=== PATIENT | female | born 1950 | race Caucasian/White ===

== ENCOUNTER 2016-12-12 11:51 | Outpatient (CLI) | payer MEDICARE, OTHER ==
[2012-10-07 14:58] VITALS: BP 110/44
== END 2016-12-12 11:52 ==
LOC: CARD 11:51
PROVIDERS: ATTEND Internal Medicine Cardiovascular Disease
DX: R06.00 Dyspnea, unspecified (principal); R01.1 Cardiac murmur, unspecified; E11.9 Type 2 diabetes mellitus without complications
CPT/HCPCS: 93005; G0463

== ENCOUNTER 2016-12-12 13:13 | Outpatient (CLI) | payer MEDICARE, OTHER ==
[2012-10-07 14:58] VITALS: BP 110/44
--- NOTE | 2016-12-12 15:45 | Diagnostic Imaging Report ---
SHRUTI VALDEZ [facility] [address] [facility].[address] [address] Report Submission Date: December 12, 2016 3:04:06 PM CDT Patient Study Name: LESVIA WILBURN Date: December 12, 2016 1:27:13 PM CDT Modality Type: CR Gender: F Description: CHEST : 52 Institution: [facility] Physician: SHRUTI VALDEZ Chest PA and lateral views Clinical history: Dyspnea for few days Normal heart shadow. Atherosclerotic thoracic aorta. No acute infiltrates or pleural effusion. Suspicious of 1 cm vague density of the left upper lobe could be the 2nd coastal cartilage junction , however plain films are not available for comparison. CT scan of the chest without IV contrast would be advisable for further evaluation . electric stimulant in the thoracic spine . Impression: Vague 1 cm density in the left upper lung , may require CT scan of the chest. No active pulmonary pathology or pleural effusion Electronically signed on December 12, 2016 3:04:06 PM CDT by: Preet DEGROOT
== END 2016-12-12 13:14 ==
LOC: RAD 13:13
PROVIDERS: ATTEND Internal Medicine Cardiovascular Disease
DX: R06.02 Shortness of breath (principal)
CPT/HCPCS: 36415; 71020; 83880

== ENCOUNTER 2017-01-16 13:35 | Outpatient (CLI) | payer MEDICARE, OTHER ==
[2012-10-07 14:58] VITALS: BP 110/44
== END 2017-01-16 13:37 ==
LOC: CARD 13:35
PROVIDERS: ATTEND Internal Medicine Cardiovascular Disease
DX: I50.9 Heart failure, unspecified (principal); E11.9 Type 2 diabetes mellitus without complications
CPT/HCPCS: G0463

== ENCOUNTER 2017-03-02 12:49 | Outpatient (CLI) | payer MEDICARE, OTHER ==
[2012-10-07 14:58] VITALS: BP 110/44
--- NOTE | 2017-03-02 15:13 | Diagnostic Imaging Report ---
ABIMBOLA MC (COSMETIC ACCOUNT COORDINATOR) - OP [facility] [address] [address] Report Submission Date: Mar 02, 2017 1:33:42 PM CDT Patient Study Name: LESVIA WILBURN Date: Mar 02, 2017 1:02:54 PM CDT Modality Type: US Gender: F Description: UNILAT LTD STDY EXT VEINS : 52 Institution: [facility] Physician: ABIMBOLA MC (COSMETIC ACCOUNT COORDINATOR) - OP Examination: Ultrasound vein History: Calf discomfort Findings: Sonographic evaluation of the right lower extremity venous system from the groin to the popliteal fossa inclusive. Normal compressibility. No luminal filling defect. Normal waveforms and response to augmentation. No popliteal region fluid collection. Impression: No evidence for deep venous thrombosis. Electronically signed on Mar 02, 2017 1:33:42 PM CDT by: Paul DEGROOT
--- NOTE | 2017-03-02 15:14 | Diagnostic Imaging Report ---
ABIMBOLA MC (BREAD OVEN OPERATOR) - OP [facility] [address] [address] Report Submission Date: Mar 02, 2017 2:26:05 PM CDT Patient Study Name: LESVIA WILBURN Date: Mar 02, 2017 1:15:52 PM CDT Modality Type: CR Gender: F Description: LOWER EXTREMITY : 51 Institution: [facility] Physician: ABIMBOLA MC (BREAD OVEN OPERATOR) - OP Examination: Plain film knee History: Knee discomfort Findings: 3 views of the knee demonstrates diffuse osteopenia. Extensive fixation surgical changes/hardware involving the proximal tibia. Tibial spine degenerative spurring. Joint space narrowing. No displaced fracture line. No joint effusion. Impression: Osteopenia, degenerative change,s and extensive proximal tibia fixation hardware. No evidence for acute fracture line. Electronically signed on Mar 02, 2017 2:26:05 PM CDT by: Paul DEGROOT
== END 2017-03-02 12:50 ==
LOC: RAD 12:49
PROVIDERS: ATTEND Nurse Practitioner Family
DX: M79.661 Pain in right lower leg (principal); M25.561 Pain in right knee
CPT/HCPCS: 73562; 93971

== ENCOUNTER 2017-05-12 13:12 | Emergency (ER) | payer MEDICARE, OTHER ==
[2017-05-12] MEDS ORDERED: KETOROLAC TROMETHAMINE 60 MG/2 ML VIAL IM ONE (13:39)
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
[2017-05-12] MEDS ORDERED: KETOROLAC TROMETHAMINE 30 MG/1ML VIAL ONE (13:41)
[2017-05-12 14:47] VITALS: BP 148/76
--- NOTE | 2017-05-12 18:56 | Diagnostic Imaging Report ---
RUBY MONTGOMERY [facility] [address] [facility].[address] [address] Report Submission Date: May 12, 2017 2:21:22 PM CDT Patient Study Name: LESVIA WILBURN Date: May 12, 2017 2:04:37 PM CDT Modality Type: CR Gender: F Description: CHEST : 52 Institution: [facility] Physician: RUBY MONTGOMERY Chest and left ribs CLINICAL HISTORY: Rib and chest pain Technique: PA chest radiograph and three views of the left ribs FINDINGS: The lung ayers are hyperinflated but clear. No pneumothorax or pneumothorax is seen. There is aortic arch calcification. An epidural spinal catheter is present in the thoracic spine. The ribs are osteopenic. No displaced rib fracture is identified. IMPRESSION: Hyperinflation lungs Aortic atherosclerosis No acute infiltrate Osteopenia of the ribs with no definite fracture seen. Consider bone scan if pain persists Electronically signed on May 12, 2017 2:21:22 PM CDT by: Randy DEGROOT
== END 2017-05-12 14:46 | disposition home or self-care (01) ==
LOC: ED 13:12
DX: S20.212A Contusion of left front wall of thorax, initial encounter (principal); W19.XXXA Unspecified fall, initial encounter; Y93.9 Activity, unspecified; Y99.9 Unspecified external cause status
CPT/HCPCS: 71101; J1885; 96372; 99283

== ENCOUNTER 2017-10-19 14:30 | Outpatient (CLI) | payer MEDICARE, OTHER | END 2017-10-19 14:44 | LOC: POD 14:30 | PROVIDERS: ATTEND Podiatrist | DX: B35.1 Tinea unguium (principal); M79.674 Pain in right toe(s); M79.675 Pain in left toe(s); E11.42 Type 2 diabetes mellitus with diabetic polyneuropathy | CPT/HCPCS: 11721; G0463 ==

== ENCOUNTER 2018-02-01 14:15 | Outpatient (CLI) | payer MEDICARE, OTHER | END 2018-02-01 14:16 | LOC: POD 14:15 | PROVIDERS: ATTEND Podiatrist | DX: B35.1 Tinea unguium (principal); M79.674 Pain in right toe(s); M79.675 Pain in left toe(s) | CPT/HCPCS: 11721; G0463 ==

== ENCOUNTER 2018-04-16 17:01 | Inpatient (IN) | payer MEDICARE, OTHER ==
[2018-04-16] MEDS ORDERED: FUROSEMIDE 20 MG TABLET PO PRN (18:12)
[2018-04-16] MEDS ORDERED: POTASSIUM CHLORIDE 20 MEQ TABLET.ER PO PRN (18:12)
[2018-04-16] MEDS ORDERED: INSULIN GLARGINE,HUM.REC.ANLOG 100 UNIT/ML PEN.INJCTR SQ ONE (19:11)
[2018-04-16] MEDS ORDERED: INSULIN DETEMIR 100 UNIT/ML 3ML PEN.INJCTR SQ SCH (21:00)
[2018-04-16] MEDS: oxyCODONE/ACETAMINOPHEN 5/325 TABLET PO PRN (21:15)
[2018-04-16] MEDS: SENNOSIDES/DOCUSATE SODIUM 1 EACH TABLET PO SCH (21:15)
[2018-04-16] MEDS: CELECOXIB 100 MG CAPSULE PO SCH (21:16)
[2018-04-16 23:22] VITALS: BMI 44.4
[2018-04-17] MEDS: oxyCODONE/ACETAMINOPHEN 5/325 TABLET PO PRN ×4 (01:00→20:39)
[2018-04-17] MEDS: PANTOPRAZOLE SODIUM 40 MG TABLET PO SCH (06:09)
[2018-04-17] MEDS: CELECOXIB 100 MG CAPSULE PO SCH ×2 (08:22→20:36)
[2018-04-17] MEDS: CITALOPRAM HYDROBROMIDE 20 MG TABLET PO SCH (08:22)
[2018-04-17] MEDS: SENNOSIDES/DOCUSATE SODIUM 1 EACH TABLET PO SCH ×2 (08:22→20:36)
--- NOTE | 2018-04-17 10:49 | History and Physical Report ---
History of Present Illnes - History of Present Illness Reason for Visit: gait disturbance History of Present Illness: Patient is a 67-year-old white female with a history of congestive heart failure diabetes mellitus type II insulin-dependent, chronic anxiety generalized osteoarthritis, encourage. On April 13 patient found in the kitchen and sustained a medial condyle her fracture. Patient was subsequently seen over at [facility] by orthopedic. It was felt that no surgical intervention was needed and was recommended that the patient be placed in a knee immobilizer with potential weight-bearing while the fracture heals. During her hospital stay patient did experience some urinary retention and had a Shultz catheter place. Patient has had problems with urinary retention previously. Patient other chronic medical problems remain stable. [facility]. - Past Medical History Cardiac: CHF (EF 60%, moderate diastoic dysfuntion) Gastrointestinal: GERD Musculoskeletal: Osteoarthritis (generalized, knee) Endocrine: Diabetes (type 2) - Past Surgical History Past Surgical History: Appendectomy, Cholecystectomy, Hysterectomy, Tonsillectomy, Other (reconstructive right ankle surgery) - Past Family History Mother Family History: DM, (73yo) Father Family History: (74yo), Other (COPD) Brother 1 Family History: CAD, DM Sister 1 Family History: DM - Past Social History Smoke: # pack years (100), Quit Occupation: retired Alcohol: None Drugs: None Lives: With Family Domestic Violence: Negative - Health Maintenance Health Maintenance: denies: Influenza Vaccine, Pneumococcal Vaccine Influenza Vaccine: No Pneumonia Vaccine: No Resuscitation Status: Resusciation Status Resuscitation Status Full Code - Unable to Obtain History Unable to Obtain: No Review of Systems - Review of Systems Constitutional: Weakness. negative: Fever, Chills Eyes: negative: pain, vision change ENT: negative: Ear Pain, Ear Discharge, Nose Pain, Nose Discharge, Nose Congestion, Mouth Swelling, Throat Swelling Respiratory: Shortness of Breath (baseline). negative: Cough, Hemoptysis, Pleuritic Pain, Wheezing Cardiovascular: negative: Chest Pain, Palpitations, Orthopnea, Edema, Light Headedness Gastrointestinal: Constipation (no BM for the last several days you know if of the lady 121 at about today is not only wanted 119 okay she had had about). negative: Nausea, Vomiting, Abdominal Pain, Diarrhea Genitourinary: Retention. negative: Dysuria, Frequency, Incontinence Musculoskeletal: Back Pain, Leg Pain. negative: Neck Pain, Shoulder Pain Skin: negative: Rash Neurological: Weakness, Confusion (with medications). negative: Numbness, Inco ordination, Change in Speech - Medications/Allergies Allergies/Adverse Reactions: Allergies Allergy/AdvReac Type Severity Reaction Status Date / Time levofloxacin [From Levaquin] Allergy Intermediate Rash Verified 04/17/18 00:24 quinine [Quinine] Allergy Intermediate Rash Verified 04/17/18 00:24 Home Medications: Home Medications Acetaminophen [Tylenol] 650 mg PO Q4 PRN 04/16/18 Aspirin [Aspirin EC] 325 mg PO BID 04/16/18 Insulin Glargine,Hum.rec.anlog [Basaglar Kwikpen U-100] 30 unit SQ 8HS 04/16/18 Ondansetron HCl Rapdis [Zofran Odt] 4 mg PO Q6H PRN 04/16/18 Sennosides/Docusate Sodium [Senna-Docusate Sodium Tablet] 1 each PO BID PRN 04/16/18 oxyCODONE HCL/ACETAMINOPHEN [Percocet 5-325 mg Tablet] 1 - 2 each PO Q4 PRN 04/16/18 Celecoxib [Celebrex] 200 mg PO DAILY 04/17/18 Citalopram Hydrobromide [Celexa] 20 mg PO QD 04/17/18 Furosemide [Lasix] 20 mg PO DAILY PRN 04/17/18 Omeprazole 40 mg PO 717 04/17/18 Potassium Chloride [Klor-Con 10] 10 meq PO DAILY PRN 04/17/18 Pregabalin [Lyrica] 25 mg PO BID 04/17/18 Zolpidem Tartrate 10 mg PO HS PRN 04/17/18 Current Inpatient Medications: Current Inpatient Medications Acetaminophen (Tylenol) 650 mg PO Q4H PRN PRN Reason: Fever >101 Celecoxib (Celebrex) 100 mg PO BID [facility] Last Admin: 04/17/18 08:22 Dose: 100 mg Citalopram Hydrobromide (Celexa) 20 mg PO DAILY [facility] Last Admin: 04/17/18 08:22 Dose: 20 mg Furosemide (Lasix) 20 mg PO DAILY PRN PRN Reason: Swelling Miscellaneous (Chem Sticks) 1 each CHEMQID [facility] Last Admin: 04/17/18 08:20 Dose: 1 each Oxycodone/Acetaminophen (Percocet 5-325 Mg Tablet) 2 each PO Q4 PRN PRN Reason: Severe Pain Last Admin: 04/17/18 06:31 Dose: 2 each Pantoprazole Sodium (Protonix) 40 mg PO 0700 [facility] Last Admin: 04/17/18 06:09 Dose: 40 mg Potassium Chloride (Klor-Con M20) 20 meq PO DAILY PRN PRN Reason: when given lasix Senna/Docusate Sodium (Senna Plus Tablet) 1 each PO BID [facility] Last Admin: 04/17/18 08:22 Dose: 1 each Exam - Exam Vital Signs: Vital Signs (72 hours) 04/16/18 04/16/18 19:28 21:00 Temperature 97.7 F 97.6 F Pulse Rate [ 60 77 Pulse ox] Respiratory 20 20 Rate Blood Pressure 126/42 153/60 [Right Arm] O2 Sat by Pulse 99 98 Oximetry General: Alert, Oriented to Person, Oriented to Place, Oriented to Time, Mild distress HEENT: Atraumatic, PERRLA, EOMI, Mouth Mucous membr. moist/St[place], Nose Mucous membr. moist/Storden, Dentition Normal, Hearing Grossly Normal Neck: Normal Range of Motion. No: Stridor, Rigidity, Lymphadenopathy Carotids: WNL Thyroid: WNL Lungs: Clear to auscultation, Normal air movement, Speaks full Sentences. No: Wheezes, Rales, Chest Wall Tenderness Cardiovascular: Murmur, Irregularly Irregular Murmur: Systolic Murmur Murmur Location: Left Sternal Boarder Heart Murmur Grade: III Peripheral Edema: intact and normal Peripheral Pulses: normal Abdomen: Normal bowel sounds, Soft, No tenderness, No hepatospenomegaly Integumentary: Normal, [place], Warm, Dry Extremities: No clubbing, No cyanosis, No edema Neurological: Normal gait, Normal speech, Strength Equal Bilat, Normal tone, Sensation intact, Cranial nerves 3-12 NL, Reflexes 2+ Psych/Mental Status: Mental status NL, Mood NL, Appropriate Affect, Intact Judgment Assessment/Plan - Assessment/Plan (1) Closed fracture of right knee region Status: Acute Current Visit: Yes Assessment: Will continue with a straight knee immobilizer in the patient is up. Patient will be toe touch weight-bearing. Will start physical and occupational therapy. Follow-up an orthopedic as ordered. (2) CHF (congestive heart failure) Status: Chronic Current Visit: Yes Qualifiers: Heart failure type: systolic Heart failure chronicity: chronic Qualified Code(s): I50.22 - Chronic systolic (congestive) heart failure Assessment: I will continue patient home medications. (3) Diabetes mellitus type 2 Status: Chronic Current Visit: No Assessment: Patient will be continued on home insulin and diabetic medications. Will follow blood sugars and adjust medications as needed. Will monitor for hypoglycemic episodes. (4) Urinary retention with incomplete bladder emptying Status: Acute Current Visit: Yes Assessment: I will be Shultz catheter in the right now. Will start doing bladder training with into the patient is getting the Shultz catheter out early next week. (5) Constipation Status: Acute Current Visit: Yes Qualifiers: Constipation type: slow transit constipation Qualified Code(s): K59.01 - Slow transit constipation Assessment: Patient will be continued on current medications. Will get patient to milk of magnesia is symptoms did not improve. Lai anderson called the patient to have diarrhea. VTE Assessment - RISK FACTOR SCORE VTE RISK FACTOR SCORES: AGE OVER 60 YEARS, ANTICIPATED BED CONFINEMENT OR IMMOBILIZATION > 24 HOURS - RISK VTE MODERATE RISK: SCORE OF 2 (RISK PROXIMAL DVT 2-4%) PROPHYAXIS NEEDED (ASA 325 BID)
[2018-04-17] MEDS ORDERED: MAGNESIUM HYDROXIDE 400 MG/5 ML 30ML UDC PO ONE (14:09)
[2018-04-17] MEDS ORDERED: diphenhydrAMINE HCL 25 MG TABLET PO ONE (14:25)
[2018-04-17] MEDS: diphenhydrAMINE HCL 25 MG TABLET PO PRN ×2 (14:51→20:39)
[2018-04-17] MEDS: LIDOCAINE 5% ADH..PATCH TP SCH (15:24)
[2018-04-17] MEDS: Non-Formulary 1 EACH PO SCH (20:37)
[2018-04-17] MEDS ORDERED: Non-Formulary 1 EACH IV SCH (21:00)
[2018-04-17] MEDS: ZOLPIDEM TARTRATE 5 MG TABLET PO PRN (23:50)
[2018-04-18] MEDS: PANTOPRAZOLE SODIUM 40 MG TABLET PO SCH (06:07)
[2018-04-18] MEDS: LIDOCAINE 5% ADH..PATCH TP SCH (09:45)
[2018-04-18] MEDS: CELECOXIB 100 MG CAPSULE PO SCH ×2 (09:45→20:37)
[2018-04-18] MEDS: SENNOSIDES/DOCUSATE SODIUM 1 EACH TABLET PO SCH ×2 (09:45→20:35)
[2018-04-18] MEDS: CITALOPRAM HYDROBROMIDE 20 MG TABLET PO SCH (09:45)
[2018-04-18] MEDS: Non-Formulary 1 EACH PO SCH ×2 (09:46→20:36)
[2018-04-18] MEDS: INSULIN GLARGINE,HUM.REC.ANLOG 100 UNIT/ML PEN.INJCTR SQ SCH ×2 (09:49→20:40)
[2018-04-18] MEDS: oxyCODONE/ACETAMINOPHEN 5/325 TABLET PO PRN ×2 (10:00→19:02)
[2018-04-18] MEDS: diphenhydrAMINE HCL 25 MG TABLET PO PRN (19:03)
[2018-04-18] MEDS ORDERED: fentaNYL CITRATE/PF 100 MCG/ 2ML AMP IM ONE (21:22)
[2018-04-19] MEDS: diphenhydrAMINE HCL 25 MG TABLET PO PRN ×2 (02:54→15:26)
[2018-04-19] MEDS: oxyCODONE/ACETAMINOPHEN 5/325 TABLET PO PRN ×4 (02:54→19:57)
[2018-04-19] MEDS: PANTOPRAZOLE SODIUM 40 MG TABLET PO SCH (06:09)
[2018-04-19] MEDS: INSULIN GLARGINE,HUM.REC.ANLOG 100 UNIT/ML PEN.INJCTR SQ SCH ×2 (09:17→20:43)
[2018-04-19] MEDS: CITALOPRAM HYDROBROMIDE 20 MG TABLET PO SCH (09:19)
[2018-04-19] MEDS: SENNOSIDES/DOCUSATE SODIUM 1 EACH TABLET PO SCH ×2 (09:20→20:47)
[2018-04-19] MEDS: Non-Formulary 1 EACH PO SCH ×2 (09:20→20:48)
[2018-04-19] MEDS: CELECOXIB 100 MG CAPSULE PO SCH ×2 (09:21→20:46)
[2018-04-19] MEDS: LIDOCAINE 5% ADH..PATCH TP SCH (10:30)
[2018-04-19] MEDS: ZOLPIDEM TARTRATE 5 MG TABLET PO PRN (23:39)
[2018-04-20] MEDS: PANTOPRAZOLE SODIUM 40 MG TABLET PO SCH (06:20)
[2018-04-20] MEDS: LIDOCAINE 5% ADH..PATCH TP SCH (08:58)
[2018-04-20] MEDS: SENNOSIDES/DOCUSATE SODIUM 1 EACH TABLET PO SCH ×2 (08:58→20:28)
[2018-04-20] MEDS: CELECOXIB 100 MG CAPSULE PO SCH ×2 (08:58→20:28)
[2018-04-20] MEDS: Non-Formulary 1 EACH PO SCH ×2 (08:58→20:28)
[2018-04-20] MEDS: CITALOPRAM HYDROBROMIDE 20 MG TABLET PO SCH (08:58)
[2018-04-20] MEDS: INSULIN GLARGINE,HUM.REC.ANLOG 100 UNIT/ML PEN.INJCTR SQ SCH ×2 (09:25→20:43)
[2018-04-20] MEDS: oxyCODONE/ACETAMINOPHEN 5/325 TABLET PO PRN ×2 (12:18→18:52)
[2018-04-20] MEDS: diphenhydrAMINE HCL 25 MG TABLET PO PRN ×2 (12:24→18:52)
[2018-04-20] MEDS: ZOLPIDEM TARTRATE 5 MG TABLET PO PRN (21:57)
[2018-04-21] MEDS: PANTOPRAZOLE SODIUM 40 MG TABLET PO SCH (06:08)
[2018-04-21] MEDS: CITALOPRAM HYDROBROMIDE 20 MG TABLET PO SCH (08:35)
[2018-04-21] MEDS: Non-Formulary 1 EACH PO SCH ×2 (08:35→20:29)
[2018-04-21] MEDS: SENNOSIDES/DOCUSATE SODIUM 1 EACH TABLET PO SCH ×2 (08:35→20:29)
[2018-04-21] MEDS: LIDOCAINE 5% ADH..PATCH TP SCH (08:35)
[2018-04-21] MEDS: CELECOXIB 100 MG CAPSULE PO SCH ×2 (08:37→20:29)
[2018-04-21] MEDS: diphenhydrAMINE HCL 25 MG TABLET PO PRN ×3 (08:45→19:32)
[2018-04-21] MEDS: oxyCODONE/ACETAMINOPHEN 5/325 TABLET PO PRN ×3 (08:45→19:32)
[2018-04-21] MEDS: INSULIN GLARGINE,HUM.REC.ANLOG 100 UNIT/ML PEN.INJCTR SQ SCH ×2 (09:47→20:32)
[2018-04-21] MEDS: PREGABALIN 50 MG CAPSULE PO SCH (20:29)
[2018-04-21] MEDS: ZOLPIDEM TARTRATE 5 MG TABLET PO PRN (23:23)
[2018-04-22] MEDS: oxyCODONE/ACETAMINOPHEN 5/325 TABLET PO PRN ×3 (05:59→22:58)
[2018-04-22] MEDS: PANTOPRAZOLE SODIUM 40 MG TABLET PO SCH (06:00)
[2018-04-22] MEDS: diphenhydrAMINE HCL 25 MG TABLET PO PRN ×3 (06:00→22:58)
[2018-04-22 06:42] LABS: eGFR (Non-African) > 60
[2018-04-22] MEDS: Non-Formulary 1 EACH PO SCH ×2 (09:07→20:13)
[2018-04-22] MEDS: LIDOCAINE 5% ADH..PATCH TP SCH (09:07)
[2018-04-22] MEDS: CITALOPRAM HYDROBROMIDE 20 MG TABLET PO SCH (09:07)
[2018-04-22] MEDS: SENNOSIDES/DOCUSATE SODIUM 1 EACH TABLET PO SCH ×2 (09:07→20:13)
[2018-04-22] MEDS: CELECOXIB 100 MG CAPSULE PO SCH ×2 (09:08→20:20)
[2018-04-22] MEDS: INSULIN GLARGINE,HUM.REC.ANLOG 100 UNIT/ML PEN.INJCTR SQ SCH ×2 (09:21→20:24)
[2018-04-22] MEDS: PREGABALIN 50 MG CAPSULE PO SCH (20:20)
[2018-04-22 20:31] LABS: BASO % 0.8 % (0.0-1.5); EOS % 5.5 % (0.0-6.8); LYMPH ABS # 2.48 thou/uL (0.60-4.00); MCH. 29.2 pg (28.0-34.0); MCV 89.4 fL (80.0-100.0); MONOCYTE ABS # 0.47 thou/uL (0.00-0.90); PLATELET COUNT 312 thou/uL (130-400)
[2018-04-22] MEDS: ZOLPIDEM TARTRATE 5 MG TABLET PO PRN (22:57)
[2018-04-23] MEDS: PANTOPRAZOLE SODIUM 40 MG TABLET PO SCH (06:04)
[2018-04-23] MEDS: oxyCODONE/ACETAMINOPHEN 5/325 TABLET PO PRN ×3 (07:37→21:33)
[2018-04-23] MEDS: diphenhydrAMINE HCL 25 MG TABLET PO PRN ×3 (07:37→21:34)
[2018-04-23] MEDS: CITALOPRAM HYDROBROMIDE 20 MG TABLET PO SCH (08:26)
[2018-04-23] MEDS: LIDOCAINE 5% ADH..PATCH TP SCH (08:26)
[2018-04-23] MEDS: SENNOSIDES/DOCUSATE SODIUM 1 EACH TABLET PO SCH ×2 (08:26→21:19)
[2018-04-23] MEDS: CELECOXIB 100 MG CAPSULE PO SCH ×2 (08:26→21:21)
[2018-04-23] MEDS: Non-Formulary 1 EACH PO SCH ×2 (08:27→21:37)
[2018-04-23] MEDS: INSULIN GLARGINE,HUM.REC.ANLOG 100 UNIT/ML PEN.INJCTR SQ SCH ×3 (08:33→21:35)
[2018-04-23] MEDS: PREGABALIN 50 MG CAPSULE PO SCH (21:19)
[2018-04-23] MEDS: ZOLPIDEM TARTRATE 5 MG TABLET PO PRN (22:55)
[2018-04-24] MEDS: PANTOPRAZOLE SODIUM 40 MG TABLET PO SCH (06:28)
[2018-04-24] MEDS: oxyCODONE/ACETAMINOPHEN 5/325 TABLET PO PRN ×2 (08:09→20:45)
[2018-04-24] MEDS: CELECOXIB 100 MG CAPSULE PO SCH ×2 (08:10→20:50)
[2018-04-24] MEDS: SENNOSIDES/DOCUSATE SODIUM 1 EACH TABLET PO SCH ×2 (08:10→20:45)
[2018-04-24] MEDS: CITALOPRAM HYDROBROMIDE 20 MG TABLET PO SCH (08:11)
[2018-04-24] MEDS: LIDOCAINE 5% ADH..PATCH TP SCH (08:11)
[2018-04-24] MEDS: Non-Formulary 1 EACH PO SCH (08:12)
[2018-04-24] MEDS: INSULIN GLARGINE,HUM.REC.ANLOG 100 UNIT/ML PEN.INJCTR SQ SCH ×2 (08:12→20:46)
[2018-04-24] MEDS: POLYETHYLENE GLYCOL 3350 17 GM POWD.PACK PO SCH (17:47)
[2018-04-24] MEDS: ASPIRIN 325 MG TABLET PO SCH (20:44)
[2018-04-24] MEDS: diphenhydrAMINE HCL 25 MG TABLET PO PRN (20:45)
[2018-04-24] MEDS: PREGABALIN 50 MG CAPSULE PO SCH ×2 (20:49→20:50)
[2018-04-24] MEDS: ZOLPIDEM TARTRATE 5 MG TABLET PO PRN (22:35)
[2018-04-25] MEDS: PANTOPRAZOLE SODIUM 40 MG TABLET PO SCH (06:02)
[2018-04-25] MEDS: SENNOSIDES/DOCUSATE SODIUM 1 EACH TABLET PO SCH ×2 (09:14→20:26)
[2018-04-25] MEDS: CITALOPRAM HYDROBROMIDE 20 MG TABLET PO SCH (09:14)
[2018-04-25] MEDS: LIDOCAINE 5% ADH..PATCH TP SCH (09:15)
[2018-04-25] MEDS: ASPIRIN 325 MG TABLET PO SCH ×2 (09:15→20:26)
[2018-04-25] MEDS: CELECOXIB 100 MG CAPSULE PO SCH ×2 (09:15→20:26)
[2018-04-25] MEDS: INSULIN GLARGINE,HUM.REC.ANLOG 100 UNIT/ML PEN.INJCTR SQ SCH ×2 (09:18→20:25)
[2018-04-25] MEDS: POLYETHYLENE GLYCOL 3350 17 GM POWD.PACK PO SCH (10:33)
[2018-04-25] MEDS: ACETAMINOPHEN 325 MG TABLET PO PRN ×2 (12:58→17:14)
[2018-04-25] MEDS ORDERED: HYDROCORTISONE 2.5% RECTAL 28.35 GM TUBE RC PRN (16:27)
[2018-04-25] MEDS: diphenhydrAMINE HCL 25 MG TABLET PO PRN (19:33)
[2018-04-25] MEDS: oxyCODONE/ACETAMINOPHEN 5/325 TABLET PO PRN (19:33)
[2018-04-25] MEDS: ZOLPIDEM TARTRATE 5 MG TABLET PO PRN (20:30)
[2018-04-25] MEDS: PREGABALIN 50 MG CAPSULE PO SCH (20:31)
[2018-04-26] MEDS: PANTOPRAZOLE SODIUM 40 MG TABLET PO SCH (06:19)
[2018-04-26] MEDS: SENNOSIDES/DOCUSATE SODIUM 1 EACH TABLET PO SCH ×2 (09:11→20:19)
[2018-04-26] MEDS: CELECOXIB 100 MG CAPSULE PO SCH ×2 (09:11→20:19)
[2018-04-26] MEDS: ACETAMINOPHEN 325 MG TABLET PO PRN (09:11)
[2018-04-26] MEDS: ASPIRIN 325 MG TABLET PO SCH ×2 (09:12→20:19)
[2018-04-26] MEDS: CITALOPRAM HYDROBROMIDE 20 MG TABLET PO SCH (09:12)
[2018-04-26] MEDS: INSULIN GLARGINE,HUM.REC.ANLOG 100 UNIT/ML PEN.INJCTR SQ SCH ×2 (09:13→20:20)
[2018-04-26] MEDS: POLYETHYLENE GLYCOL 3350 17 GM POWD.PACK PO SCH (11:16)
[2018-04-26] MEDS: LIDOCAINE 5% ADH..PATCH TP SCH (12:33)
[2018-04-26] MEDS: diphenhydrAMINE HCL 25 MG TABLET PO PRN (17:40)
[2018-04-26] MEDS: oxyCODONE/ACETAMINOPHEN 5/325 TABLET PO PRN (17:40)
[2018-04-26] MEDS: PREGABALIN 50 MG CAPSULE PO SCH (20:19)
[2018-04-26] MEDS: ZOLPIDEM TARTRATE 5 MG TABLET PO PRN (21:57)
[2018-04-27] MEDS: PANTOPRAZOLE SODIUM 40 MG TABLET PO SCH (06:09)
[2018-04-27] MEDS: ASPIRIN 325 MG TABLET PO SCH ×2 (08:18→21:16)
[2018-04-27] MEDS: CITALOPRAM HYDROBROMIDE 20 MG TABLET PO SCH (08:18)
[2018-04-27] MEDS: SENNOSIDES/DOCUSATE SODIUM 1 EACH TABLET PO SCH ×2 (08:19→21:16)
[2018-04-27] MEDS: LIDOCAINE 5% ADH..PATCH TP SCH (08:19)
[2018-04-27] MEDS: CELECOXIB 100 MG CAPSULE PO SCH ×2 (08:21→21:15)
[2018-04-27] MEDS: INSULIN GLARGINE,HUM.REC.ANLOG 100 UNIT/ML PEN.INJCTR SQ SCH ×2 (08:30→21:17)
[2018-04-27] MEDS: ACETAMINOPHEN 325 MG TABLET PO PRN (08:32)
[2018-04-27] MEDS: POLYETHYLENE GLYCOL 3350 17 GM POWD.PACK PO SCH (11:05)
[2018-04-27] MEDS: oxyCODONE/ACETAMINOPHEN 5/325 TABLET PO PRN ×2 (14:38→21:15)
[2018-04-27] MEDS: diphenhydrAMINE HCL 25 MG TABLET PO PRN ×2 (14:38→21:17)
[2018-04-27] MEDS: PREGABALIN 50 MG CAPSULE PO SCH (21:16)
[2018-04-27] MEDS: ZOLPIDEM TARTRATE 5 MG TABLET PO PRN (23:08)
[2018-04-28] MEDS: oxyCODONE/ACETAMINOPHEN 5/325 TABLET PO PRN ×3 (06:16→19:31)
[2018-04-28] MEDS: PANTOPRAZOLE SODIUM 40 MG TABLET PO SCH (06:16)
[2018-04-28] MEDS: diphenhydrAMINE HCL 25 MG TABLET PO PRN ×3 (06:18→19:31)
[2018-04-28] MEDS: CELECOXIB 100 MG CAPSULE PO SCH ×2 (09:05→20:18)
[2018-04-28] MEDS: ASPIRIN 325 MG TABLET PO SCH ×2 (09:06→20:17)
[2018-04-28] MEDS: INSULIN GLARGINE,HUM.REC.ANLOG 100 UNIT/ML PEN.INJCTR SQ SCH ×2 (09:06→20:26)
[2018-04-28] MEDS: LIDOCAINE 5% ADH..PATCH TP SCH (09:07)
[2018-04-28] MEDS: SENNOSIDES/DOCUSATE SODIUM 1 EACH TABLET PO SCH ×2 (09:07→20:18)
[2018-04-28] MEDS: CITALOPRAM HYDROBROMIDE 20 MG TABLET PO SCH (09:07)
[2018-04-28] MEDS: POLYETHYLENE GLYCOL 3350 17 GM POWD.PACK PO SCH (11:36)
[2018-04-28] MEDS: ZOLPIDEM TARTRATE 5 MG TABLET PO PRN (20:18)
[2018-04-28] MEDS: PREGABALIN 50 MG CAPSULE PO SCH (20:18)
[2018-04-29] MEDS: oxyCODONE/ACETAMINOPHEN 5/325 TABLET PO PRN ×3 (00:31→22:28)
[2018-04-29] MEDS: diphenhydrAMINE HCL 25 MG TABLET PO PRN ×3 (00:31→22:30)
[2018-04-29] MEDS: PANTOPRAZOLE SODIUM 40 MG TABLET PO SCH (06:00)
[2018-04-29] MEDS: CELECOXIB 100 MG CAPSULE PO SCH ×2 (09:24→19:43)
[2018-04-29] MEDS: ASPIRIN 325 MG TABLET PO SCH ×2 (09:24→19:39)
[2018-04-29] MEDS: CITALOPRAM HYDROBROMIDE 20 MG TABLET PO SCH (09:25)
[2018-04-29] MEDS: SENNOSIDES/DOCUSATE SODIUM 1 EACH TABLET PO SCH ×2 (09:25→19:39)
[2018-04-29] MEDS: LIDOCAINE 5% ADH..PATCH TP SCH (09:26)
[2018-04-29] MEDS: INSULIN GLARGINE,HUM.REC.ANLOG 100 UNIT/ML PEN.INJCTR SQ SCH ×2 (10:07→19:46)
[2018-04-29] MEDS: POLYETHYLENE GLYCOL 3350 17 GM POWD.PACK PO SCH (10:47)
[2018-04-29] MEDS: PREGABALIN 50 MG CAPSULE PO SCH (19:43)
[2018-04-29] MEDS: ZOLPIDEM TARTRATE 5 MG TABLET PO PRN (22:28)
[2018-04-30] MEDS: PANTOPRAZOLE SODIUM 40 MG TABLET PO SCH (06:19)
[2018-04-30] MEDS: diphenhydrAMINE HCL 25 MG TABLET PO PRN ×2 (06:31→20:57)
[2018-04-30] MEDS: oxyCODONE/ACETAMINOPHEN 5/325 TABLET PO PRN ×2 (06:31→20:58)
[2018-04-30] MEDS: ASPIRIN 325 MG TABLET PO SCH ×2 (08:21→20:57)
[2018-04-30] MEDS: CITALOPRAM HYDROBROMIDE 20 MG TABLET PO SCH (08:21)
[2018-04-30] MEDS: LIDOCAINE 5% ADH..PATCH TP SCH (08:22)
[2018-04-30] MEDS: CELECOXIB 100 MG CAPSULE PO SCH ×2 (08:22→21:01)
[2018-04-30] MEDS: SENNOSIDES/DOCUSATE SODIUM 1 EACH TABLET PO SCH ×2 (08:22→21:00)
[2018-04-30] MEDS: INSULIN GLARGINE,HUM.REC.ANLOG 100 UNIT/ML PEN.INJCTR SQ SCH ×2 (08:23→20:57)
[2018-04-30] MEDS: POLYETHYLENE GLYCOL 3350 17 GM POWD.PACK PO SCH (10:09)
--- NOTE | 2018-04-30 13:31 | Diagnostic Imaging Report ---
PREET MONTGOMERY [facility] [address] [facility] [address] [address] Report Submission Date: Apr 30, 2018 7:24:54 AM CDT Patient Study Name: LESVIA WILBURN Date: Apr 30, 2018 7:06:38 AM CDT Modality Type: DX Gender: F Description: LOWER EXTREMITY : 52 Institution: [facility] Physician: PREET MONTGOMERY Right knee 2 views Clinical history: Followup fractured knee There is the internal fixation of the fractured medial tibial plateau. Bony fragments and the hardware are in good position. Osteopenia is noted. No joint effusion. Impression: Internal fixation of the fractured right tibia with hardware is in good position Osteopenia without joint effusion Electronically signed on Apr 30, 2018 7:24:54 AM CDT by: Preet DEGROOT
[2018-04-30] MEDS: PREGABALIN 50 MG CAPSULE PO SCH (21:01)
[2018-04-30] MEDS: ZOLPIDEM TARTRATE 5 MG TABLET PO PRN (23:07)
[2018-05-01] MEDS: oxyCODONE/ACETAMINOPHEN 5/325 TABLET PO PRN ×2 (02:04→17:38)
[2018-05-01] MEDS: diphenhydrAMINE HCL 25 MG TABLET PO PRN ×2 (02:04→17:39)
[2018-05-01] MEDS: PANTOPRAZOLE SODIUM 40 MG TABLET PO SCH (06:28)
[2018-05-01] MEDS: LIDOCAINE 5% ADH..PATCH TP SCH (08:31)
[2018-05-01] MEDS: ASPIRIN 325 MG TABLET PO SCH ×2 (08:31→20:20)
[2018-05-01] MEDS: CITALOPRAM HYDROBROMIDE 20 MG TABLET PO SCH (08:31)
[2018-05-01] MEDS: CELECOXIB 100 MG CAPSULE PO SCH ×2 (08:31→20:20)
[2018-05-01] MEDS: INSULIN GLARGINE,HUM.REC.ANLOG 100 UNIT/ML PEN.INJCTR SQ SCH (08:34)
[2018-05-01] MEDS: SENNOSIDES/DOCUSATE SODIUM 1 EACH TABLET PO SCH ×2 (08:41→20:20)
[2018-05-01] MEDS: POLYETHYLENE GLYCOL 3350 17 GM POWD.PACK PO SCH (11:41)
[2018-05-01] MEDS: PREGABALIN 50 MG CAPSULE PO SCH (20:20)
[2018-05-01] MEDS: ZOLPIDEM TARTRATE 5 MG TABLET PO PRN (20:21)
[2018-05-01] MEDS ORDERED: PATIENT OWN MED 1 EACH EACH SQ SCH (21:00)
[2018-05-01] MEDS: PATIENT OWN MED 1 EACH EACH SQ SCH (21:00)
[2018-05-01] MEDS ORDERED: INSULIN GLARGINE,HUM.REC.ANLOG 100 UNIT/ML PEN.INJCTR SQ ONE (21:47)
[2018-05-02] MEDS: PANTOPRAZOLE SODIUM 40 MG TABLET PO SCH (06:09)
[2018-05-02] MEDS: ASPIRIN 325 MG TABLET PO SCH ×2 (08:51→20:37)
[2018-05-02] MEDS: CELECOXIB 100 MG CAPSULE PO SCH ×2 (08:51→20:38)
[2018-05-02] MEDS: CITALOPRAM HYDROBROMIDE 20 MG TABLET PO SCH (08:51)
[2018-05-02] MEDS: LIDOCAINE 5% ADH..PATCH TP SCH (08:51)
[2018-05-02] MEDS: PATIENT OWN MED 1 EACH EACH SQ SCH (08:52)
[2018-05-02] MEDS: SENNOSIDES/DOCUSATE SODIUM 1 EACH TABLET PO SCH ×2 (08:52→20:38)
[2018-05-02] MEDS: INSULIN GLARGINE,HUM.REC.ANLOG 100 UNIT/ML PEN.INJCTR SQ SCH ×3 (09:30→20:49)
[2018-05-02] MEDS: diphenhydrAMINE HCL 25 MG TABLET PO PRN (10:10)
[2018-05-02] MEDS: oxyCODONE/ACETAMINOPHEN 5/325 TABLET PO PRN (10:10)
[2018-05-02] MEDS: POLYETHYLENE GLYCOL 3350 17 GM POWD.PACK PO SCH (12:01)
[2018-05-02] MEDS: ZOLPIDEM TARTRATE 5 MG TABLET PO PRN (20:37)
[2018-05-02] MEDS: PREGABALIN 50 MG CAPSULE PO SCH (20:38)
[2018-05-03] MEDS: diphenhydrAMINE HCL 25 MG TABLET PO PRN ×3 (02:54→20:30)
[2018-05-03] MEDS: oxyCODONE/ACETAMINOPHEN 5/325 TABLET PO PRN ×3 (02:54→20:30)
[2018-05-03] MEDS: PANTOPRAZOLE SODIUM 40 MG TABLET PO SCH (06:07)
[2018-05-03] MEDS: CITALOPRAM HYDROBROMIDE 20 MG TABLET PO SCH (09:17)
[2018-05-03] MEDS: ASPIRIN 325 MG TABLET PO SCH ×2 (09:17→20:30)
[2018-05-03] MEDS: ACETAMINOPHEN 325 MG TABLET PO PRN ×2 (09:17→18:02)
[2018-05-03] MEDS: SENNOSIDES/DOCUSATE SODIUM 1 EACH TABLET PO SCH ×2 (09:17→20:30)
[2018-05-03] MEDS: LIDOCAINE 5% ADH..PATCH TP SCH (09:18)
[2018-05-03] MEDS: CELECOXIB 100 MG CAPSULE PO SCH ×2 (09:21→20:30)
[2018-05-03] MEDS: INSULIN GLARGINE,HUM.REC.ANLOG 100 UNIT/ML PEN.INJCTR SQ SCH ×3 (09:25→20:29)
[2018-05-03] MEDS: POLYETHYLENE GLYCOL 3350 17 GM POWD.PACK PO SCH (12:21)
[2018-05-03] MEDS: PREGABALIN 50 MG CAPSULE PO SCH (20:30)
[2018-05-03] MEDS: ZOLPIDEM TARTRATE 5 MG TABLET PO PRN (20:34)
[2018-05-04] MEDS: oxyCODONE/ACETAMINOPHEN 5/325 TABLET PO PRN ×3 (00:30→11:05)
[2018-05-04] MEDS: diphenhydrAMINE HCL 25 MG TABLET PO PRN ×3 (00:30→11:11)
[2018-05-04] MEDS: PANTOPRAZOLE SODIUM 40 MG TABLET PO SCH (06:00)
[2018-05-04] MEDS: SENNOSIDES/DOCUSATE SODIUM 1 EACH TABLET PO SCH ×2 (08:54→21:00)
[2018-05-04] MEDS: ASPIRIN 325 MG TABLET PO SCH ×2 (08:55→21:00)
[2018-05-04] MEDS: INSULIN GLARGINE,HUM.REC.ANLOG 100 UNIT/ML PEN.INJCTR SQ SCH ×2 (08:55→21:04)
[2018-05-04] MEDS: CITALOPRAM HYDROBROMIDE 20 MG TABLET PO SCH (08:55)
[2018-05-04] MEDS: LIDOCAINE 5% ADH..PATCH TP SCH (08:55)
[2018-05-04] MEDS: CELECOXIB 100 MG CAPSULE PO SCH ×2 (08:56→21:00)
[2018-05-04] MEDS: ACETAMINOPHEN 325 MG TABLET PO PRN (11:05)
[2018-05-04] MEDS: POLYETHYLENE GLYCOL 3350 17 GM POWD.PACK PO SCH (11:06)
[2018-05-04] MEDS: PREGABALIN 50 MG CAPSULE PO SCH (21:00)
[2018-05-04] MEDS: ZOLPIDEM TARTRATE 5 MG TABLET PO PRN (22:09)
[2018-05-05] MEDS: PANTOPRAZOLE SODIUM 40 MG TABLET PO SCH (06:24)
[2018-05-05] MEDS: ASPIRIN 325 MG TABLET PO SCH ×2 (10:14→20:16)
[2018-05-05] MEDS: CITALOPRAM HYDROBROMIDE 20 MG TABLET PO SCH (10:14)
[2018-05-05] MEDS: LIDOCAINE 5% ADH..PATCH TP SCH (10:15)
[2018-05-05] MEDS: CELECOXIB 100 MG CAPSULE PO SCH ×2 (10:15→20:17)
[2018-05-05] MEDS: SENNOSIDES/DOCUSATE SODIUM 1 EACH TABLET PO SCH ×2 (10:15→20:16)
[2018-05-05] MEDS: POLYETHYLENE GLYCOL 3350 17 GM POWD.PACK PO SCH (11:07)
[2018-05-05] MEDS: oxyCODONE/ACETAMINOPHEN 5/325 TABLET PO PRN (13:43)
[2018-05-05] MEDS: diphenhydrAMINE HCL 25 MG TABLET PO PRN (13:43)
[2018-05-05] MEDS: PREGABALIN 50 MG CAPSULE PO SCH (20:16)
[2018-05-05] MEDS: INSULIN GLARGINE,HUM.REC.ANLOG 100 UNIT/ML PEN.INJCTR SQ SCH (20:19)
[2018-05-06] MEDS: PANTOPRAZOLE SODIUM 40 MG TABLET PO SCH (06:39)
[2018-05-06] MEDS: ASPIRIN 325 MG TABLET PO SCH ×2 (09:03→19:49)
[2018-05-06] MEDS: CELECOXIB 100 MG CAPSULE PO SCH ×2 (09:03→19:50)
[2018-05-06] MEDS: CITALOPRAM HYDROBROMIDE 20 MG TABLET PO SCH (09:04)
[2018-05-06] MEDS: SENNOSIDES/DOCUSATE SODIUM 1 EACH TABLET PO SCH ×2 (09:04→19:49)
[2018-05-06] MEDS: oxyCODONE/ACETAMINOPHEN 5/325 TABLET PO PRN ×2 (09:04→19:49)
[2018-05-06] MEDS: LIDOCAINE 5% ADH..PATCH TP SCH (09:04)
[2018-05-06] MEDS: POLYETHYLENE GLYCOL 3350 17 GM POWD.PACK PO SCH (11:15)
[2018-05-06] MEDS: diphenhydrAMINE HCL 25 MG TABLET PO PRN (19:49)
[2018-05-06] MEDS: PREGABALIN 50 MG CAPSULE PO SCH (19:50)
[2018-05-06] MEDS: INSULIN GLARGINE,HUM.REC.ANLOG 100 UNIT/ML PEN.INJCTR SQ SCH (19:52)
[2018-05-06] MEDS: ZOLPIDEM TARTRATE 5 MG TABLET PO PRN (21:13)
[2018-05-07] MEDS: PANTOPRAZOLE SODIUM 40 MG TABLET PO SCH (06:25)
[2018-05-07] MEDS: ASPIRIN 325 MG TABLET PO SCH ×2 (09:20→19:53)
[2018-05-07] MEDS: oxyCODONE/ACETAMINOPHEN 5/325 TABLET PO PRN ×2 (09:21→21:29)
[2018-05-07] MEDS: LIDOCAINE 5% ADH..PATCH TP SCH (09:21)
[2018-05-07] MEDS: SENNOSIDES/DOCUSATE SODIUM 1 EACH TABLET PO SCH ×2 (09:21→19:58)
[2018-05-07] MEDS: CITALOPRAM HYDROBROMIDE 20 MG TABLET PO SCH (09:21)
[2018-05-07] MEDS: CELECOXIB 100 MG CAPSULE PO SCH ×2 (09:21→20:01)
[2018-05-07] MEDS: POLYETHYLENE GLYCOL 3350 17 GM POWD.PACK PO SCH (11:44)
[2018-05-07] MEDS: INSULIN GLARGINE,HUM.REC.ANLOG 100 UNIT/ML PEN.INJCTR SQ SCH (19:55)
[2018-05-07] MEDS: PREGABALIN 50 MG CAPSULE PO SCH (20:00)
[2018-05-07] MEDS: ZOLPIDEM TARTRATE 5 MG TABLET PO PRN (20:01)
[2018-05-07] MEDS: diphenhydrAMINE HCL 25 MG TABLET PO PRN (21:29)
[2018-05-08] MEDS: PANTOPRAZOLE SODIUM 40 MG TABLET PO SCH (06:11)
--- NOTE | 2018-05-08 08:01 | Discharge Summary ---
Discharge Summary - Discharge Sumary History of Present Illness: Patient is a 67-year-old white female with a history of congestive heart failure diabetes mellitus type II insulin-dependent, chronic anxiety generalized osteoarthritis, encourage. On April 13 patient found in the kitchen and sustained a medial condyle her fracture. Patient was subsequently seen over at [facility] by orthopedic. It was felt that no surgical intervention was needed and was recommended that the patient be placed in a knee immobilizer with toe touch weight-bearing while the fracture heals. During her hospital stay patient did experience some urinary retention and had a Shultz catheter place. Patient has had problems with urinary retention previously. Patient other chronic medical problems remain stable. Patient was transferred to the this institution for further rehab services. Condition at Discharge: Stable Home Medications: Ambulatory Orders Medication Instructions Recorded Acetaminophen [Tylenol] 650 mg PO Q4 PRN 04/16/18 Aspirin [Aspirin EC] 325 mg PO BID 04/16/18 Sennosides/Docusate Sodium 1 each PO BID PRN 04/16/18 [Senna-Docusate Sodium Tablet] Celecoxib [Celebrex] 200 mg PO DAILY 04/17/18 Citalopram Hydrobromide [Celexa] 20 mg PO QD 04/17/18 Furosemide [Lasix] 20 mg PO DAILY PRN 04/17/18 Omeprazole 40 mg PO 717 04/17/18 Potassium Chloride [Klor-Con 10] 10 meq PO DAILY PRN 04/17/18 Pregabalin [Lyrica] 25 mg PO BID 04/17/18 Zolpidem Tartrate 10 mg PO HS PRN 04/17/18 Acetaminophen [Tylenol] 650 mg PO Q4H PRN tablet 05/08/18 Insulin Aspart Prot/Insuln Asp 5 unit SQ DAILY #15 ml 05/08/18 [Novolog Mix 70-30 Flexpen Syrn] Insulin Glargine,Hum.rec.anlog 20 unit SQ 8HS #0 05/08/18 [Basaglar Kwikpen U-100] Consultations this Visit: None Procedures this Visit: None Allergies/Adverse Reactions: Allergies Allergy/AdvReac Type Severity Reaction Status Date / Time levofloxacin [From Levaquin] Allergy Intermediate Rash Verified 04/17/18 00:24 quinine [Quinine] Allergy Intermediate Rash Verified 04/17/18 00:24 Patient Problems: Current Active Problems Problem Status Onset Chronic anxiety Acute Closed fracture of right knee region Acute Constipation Acute Urinary retention with incomplete bladder emptying Acute CHF (congestive heart failure) Chronic Discharge Summary: 67-year-old white female sustained a right medial femoral condyle fracture. It was noted to be nondisplaced. [place] that no surgical intervention was needed at this time. Patient was placed on toe touch weight bearing. Patient was started on physical and occupational therapy and participated well. Patient was able to transfer better and ambulate better at the time of discharge. At the time to discharge patient was continued on toe touch weight-bearing. Patient did have a follow-up x-ray which was sent to her orthopedic physician with no changes in orders. Diabetes mellitus was stable. Patient did have some hypoglycemic episodes in the morning. Patient Basaglar insulin with decrease.At the time to discharge patient was started on Novolog 70/35 units at noon. Patient was admitted with a Shultz catheter in place for urinary retention. We were able to remove the catheter patient is not have any difficulty with urination at this time. Patient did have some intermittent problems with constipation. This was treated symptomatically. Patient congestive heart failure remain stable. Patient is taking PRV and Lasix for this. - Final Diagnosis (1) Closed fracture of right knee region Problems: Right medial femoral condyle fracture -nondisplaced (2) CHF (congestive heart failure) Problems: Stable (3) Diabetes mellitus type 2 Problems: stable (4) Urinary retention with incomplete bladder emptying Problems: urinating without difficulties (5) Constipation Problems: stable
--- NOTE | 2018-05-08 08:26 | Inpatient Progress Note ---
Objective - Exam Vitals and I&O: Vital Signs Temp 97.9 F 05/07/18 21:00 Pulse 67 05/07/18 21:00 Resp 16 05/08/18 07:57 BP 145/56 05/07/18 21:00 Pulse Ox 97 05/07/18 21:00 Intake & Output 05/07/18 05/07/18 05/08/18 11:59 23:59 11:59 Intake Total 480 1400 260 Balance 480 1400 260 Intake: Oral 480 1400 260 Other: Voiding Method Bedside Commode Bedside Commode Bedside Commode # Voids 1 1 2 - Results Results: Laboratory Results WBC Comment 7.91 thou/uL (4.00-12.00) 04/22/18 06:00 RBC 3.73 mil/uL (3.90-5.20) L 04/22/18 06:00 Hemoglobin (Send Out) 10.9 g/dL (11.5-16.0) L 04/22/18 06:00 Hct (Send Out) 33.3 % (34.5-46.5) L 04/22/18 06:00 MCV (Send Out) 89.4 fL (80.0-100.0) 04/22/18 06:00 MCH 29.2 pg (28.0-34.0) 04/22/18 06:00 MCHC (Send Out) 32.7 g/dL (30.0-36.0) 04/22/18 06:00 RDW Coeff of Masoud 14.1 % (11.3-14.7) 04/22/18 06:00 Plt Count 312 thou/uL (130-400) 04/22/18 06:00 Absolute Lymphs (auto) 2.48 thou/uL (0.60-4.00) 04/22/18 06:00 Absolute Monos (auto) 0.47 thou/uL (0.00-0.90) 04/22/18 06:00 Absolute Basos (auto) 0.06 thou/uL (0.00-0.50) 04/22/18 06:00 Neutrophils % 56.4 % (39.0-79.0) 04/22/18 06:00 Absolute Neutrophils 4.46 thou/uL (1.50-7.70) 04/22/18 06:00 Lymphocytes 31.3 % (16.0-50.0) 04/22/18 06:00 Monocytes 6.0 % (0.0-11.0) 04/22/18 06:00 Absolute Eosinophils 0.44 thou/uL (0.00-0.60) 04/22/18 06:00 Basophilia % 0.8 % (0.0-1.5) 04/22/18 06:00 Eosinophil Count 5.5 % (0.0-6.8) 04/22/18 06:00 Sodium 136 mmol/L (136-145) 04/22/18 06:00 Potassium 3.7 mmol/L (3.5-5.1) 04/22/18 06:00 Chloride 100 mmol/L (98-107) 04/22/18 06:00 Carbon Dioxide 27 mmol/L (22-30) 04/22/18 06:00 BUN 20 mg/dL (7-17) H 04/22/18 06:00 Creatinine 0.60 mg/dL (0.52-1.04) 04/22/18 06:00 Estimated Creat Clear 194 04/22/18 06:00 Est GFR ( Amer) > 60 (60-) 04/22/18 06:00 Est GFR (Non-Af Amer) > 60 (60-) 04/22/18 06:00 Glucose 86 mg/dL (74-106) 04/22/18 06:00 Calcium 8.6 mg/dL (8.4-10.2) 04/22/18 06:00 Total Bilirubin 0.2 mg/dL (0.2-1.3) 04/22/18 06:00 AST 18 U/L (15-46) 04/22/18 06:00 ALT 31 U/L (13-69) 04/22/18 06:00 Alkaline Phosphatase 108 U/L (38-126) 04/22/18 06:00 Total Protein 6.1 g/dL (6.3-8.2) L 04/22/18 06:00 Albumin 3.1 g/dL (3.5-5.0) L 04/22/18 06:00 Assessment/Plan - Assessment/Plan (1) Closed fracture of right knee region Status: Acute Current Visit: Yes (2) CHF (congestive heart failure) Status: Chronic Current Visit: Yes Qualifiers: Heart failure type: systolic Heart failure chronicity: chronic Qualified Code(s): I50.22 - Chronic systolic (congestive) heart failure (3) Diabetes mellitus type 2 Status: Chronic Current Visit: No (4) Urinary retention with incomplete bladder emptying Status: Acute Current Visit: Yes (5) Constipation Status: Acute Current Visit: Yes Qualifiers: Constipation type: slow transit constipation Qualified Code(s): K59.01 - Slow transit constipation
--- NOTE | 2018-05-08 08:27 | Inpatient Progress Note ---
Subjective - Required Recertification Statement I anticipate X number of days because-include discharge plan: 14 - Review of Systems Events since last encounter: Patient continues to do well with physical and occupational therapy at this time. Patient stated pain is starting to improved some. Patient did have the Shultz catheter removed yesterday and seem to be urinating well at this time. Patient diabetes mellitus has been stable. Blood sugars been running a little bit higher in the evening times. Objective - Exam Vitals and I&O: Vital Signs Temp 97.9 F 05/07/18 21:00 Pulse 67 05/07/18 21:00 Resp 16 05/08/18 07:57 BP 145/56 05/07/18 21:00 Pulse Ox 97 05/07/18 21:00 Intake & Output 05/07/18 05/07/18 05/08/18 11:59 23:59 11:59 Intake Total 480 1400 260 Balance 480 1400 260 Intake: Oral 480 1400 260 Other: Voiding Method Bedside Commode Bedside Commode Bedside Commode # Voids 1 1 2 General: Alert, Oriented to Person, Oriented to Place, Oriented to Time, Cooperative Neck: Supple, No JVD, No thyromegaly Lungs: Clear to auscultation, Normal air movement, Speaks full Sentences Cardiovascular: Regular rate, Normal S1, Normal S2, No murmurs Abdomen: Normal bowel sounds, Soft, No tenderness, No hepatospenomegaly, No masses Extremities: Other (knee immobilizer in place) Skin: Normal - Results Results: Laboratory Results WBC Comment 7.91 thou/uL (4.00-12.00) 04/22/18 06:00 RBC 3.73 mil/uL (3.90-5.20) L 04/22/18 06:00 Hemoglobin (Send Out) 10.9 g/dL (11.5-16.0) L 04/22/18 06:00 Hct (Send Out) 33.3 % (34.5-46.5) L 04/22/18 06:00 MCV (Send Out) 89.4 fL (80.0-100.0) 04/22/18 06:00 MCH 29.2 pg (28.0-34.0) 04/22/18 06:00 MCHC (Send Out) 32.7 g/dL (30.0-36.0) 04/22/18 06:00 RDW Coeff of [place] 14.1 % (11.3-14.7) 04/22/18 06:00 Plt Count 312 thou/uL (130-400) 04/22/18 06:00 Absolute Lymphs (auto) 2.48 thou/uL (0.60-4.00) 04/22/18 06:00 Absolute Monos (auto) 0.47 thou/uL (0.00-0.90) 04/22/18 06:00 Absolute Basos (auto) 0.06 thou/uL (0.00-0.50) 04/22/18 06:00 Neutrophils % 56.4 % (39.0-79.0) 04/22/18 06:00 Absolute Neutrophils 4.46 thou/uL (1.50-7.70) 04/22/18 06:00 Lymphocytes 31.3 % (16.0-50.0) 04/22/18 06:00 Monocytes 6.0 % (0.0-11.0) 04/22/18 06:00 Absolute Eosinophils 0.44 thou/uL (0.00-0.60) 04/22/18 06:00 Basophilia % 0.8 % (0.0-1.5) 04/22/18 06:00 Eosinophil Count 5.5 % (0.0-6.8) 04/22/18 06:00 Sodium 136 mmol/L (136-145) 04/22/18 06:00 Potassium 3.7 mmol/L (3.5-5.1) 04/22/18 06:00 Chloride 100 mmol/L (98-107) 04/22/18 06:00 Carbon Dioxide 27 mmol/L (22-30) 04/22/18 06:00 BUN 20 mg/dL (7-17) H 04/22/18 06:00 Creatinine 0.60 mg/dL (0.52-1.04) 04/22/18 06:00 Estimated Creat Clear 194 04/22/18 06:00 Est GFR ( Amer) > 60 (60-) 04/22/18 06:00 Est GFR (Non-Af Amer) > 60 (60-) 04/22/18 06:00 Glucose 86 mg/dL (74-106) 04/22/18 06:00 Calcium 8.6 mg/dL (8.4-10.2) 04/22/18 06:00 Total Bilirubin 0.2 mg/dL (0.2-1.3) 04/22/18 06:00 AST 18 U/L (15-46) 04/22/18 06:00 ALT 31 U/L (13-69) 04/22/18 06:00 Alkaline Phosphatase 108 U/L (38-126) 04/22/18 06:00 Total Protein 6.1 g/dL (6.3-8.2) L 04/22/18 06:00 Albumin 3.1 g/dL (3.5-5.0) L 04/22/18 06:00 Assessment/Plan - Assessment/Plan (1) Closed fracture of right knee region Status: Acute Current Visit: Yes Assessment: Stable (2) Diabetes mellitus type 2 Status: Chronic Current Visit: No (3) Urinary retention with incomplete bladder emptying Status: Acute Current Visit: Yes Assessment: Doing well with catheter removed (4) Constipation Status: Acute Current Visit: Yes Qualifiers: Constipation type: slow transit constipation Qualified Code(s): K59.01 - Slow transit constipation Assessment: stable
--- NOTE | 2018-05-08 08:28 | Inpatient Progress Note ---
Subjective - Required Recertification Statement I anticipate X number of days because-include discharge plan: 21 - Review of Systems Events since last encounter: Patient seemed to be doing well at this time. Patient is participating with physical and occupational therapy well. Patient diabetes mellitus has been stable. Patient has been having some mild constipation problems does seem to be doing better at this time. Patient is still required a fair amount of pain medication. Objective - Exam Vitals and I&O: Vital Signs Temp 97.9 F 05/07/18 21:00 Pulse 67 05/07/18 21:00 Resp 16 05/08/18 07:57 BP 145/56 05/07/18 21:00 Pulse Ox 97 05/07/18 21:00 Intake & Output 05/07/18 05/07/18 05/08/18 11:59 23:59 11:59 Intake Total 480 1400 260 Balance 480 1400 260 Intake: Oral 480 1400 260 Other: Voiding Method Bedside Commode Bedside Commode Bedside Commode # Voids 1 1 2 General: Alert, Oriented to Person, Oriented to Place, Oriented to Time, Cooperative Lungs: Clear to auscultation, Normal air movement, Speaks full Sentences Cardiovascular: Regular rate, Normal S1, Normal S2, No murmurs Extremities: No clubbing, Other (RLE swelling improved) Skin: Normal, Sage, Warm Neurological: Normal speech, Strength Equal Bilat - Results Results: Laboratory Results WBC Comment 7.91 thou/uL (4.00-12.00) 04/22/18 06:00 RBC 3.73 mil/uL (3.90-5.20) L 04/22/18 06:00 Hemoglobin (Send Out) 10.9 g/dL (11.5-16.0) L 04/22/18 06:00 Hct (Send Out) 33.3 % (34.5-46.5) L 04/22/18 06:00 MCV (Send Out) 89.4 fL (80.0-100.0) 04/22/18 06:00 MCH 29.2 pg (28.0-34.0) 04/22/18 06:00 MCHC (Send Out) 32.7 g/dL (30.0-36.0) 04/22/18 06:00 RDW Coeff of Masoud 14.1 % (11.3-14.7) 04/22/18 06:00 Plt Count 312 thou/uL (130-400) 04/22/18 06:00 Absolute Lymphs (auto) 2.48 thou/uL (0.60-4.00) 04/22/18 06:00 Absolute Monos (auto) 0.47 thou/uL (0.00-0.90) 04/22/18 06:00 Absolute Basos (auto) 0.06 thou/uL (0.00-0.50) 04/22/18 06:00 Neutrophils % 56.4 % (39.0-79.0) 04/22/18 06:00 Absolute Neutrophils 4.46 thou/uL (1.50-7.70) 04/22/18 06:00 Lymphocytes 31.3 % (16.0-50.0) 04/22/18 06:00 Monocytes 6.0 % (0.0-11.0) 04/22/18 06:00 Absolute Eosinophils 0.44 thou/uL (0.00-0.60) 04/22/18 06:00 Basophilia % 0.8 % (0.0-1.5) 04/22/18 06:00 Eosinophil Count 5.5 % (0.0-6.8) 04/22/18 06:00 Sodium 136 mmol/L (136-145) 04/22/18 06:00 Potassium 3.7 mmol/L (3.5-5.1) 04/22/18 06:00 Chloride 100 mmol/L (98-107) 04/22/18 06:00 Carbon Dioxide 27 mmol/L (22-30) 04/22/18 06:00 BUN 20 mg/dL (7-17) H 04/22/18 06:00 Creatinine 0.60 mg/dL (0.52-1.04) 04/22/18 06:00 Estimated Creat Clear 194 04/22/18 06:00 Est GFR ( Amer) > 60 (60-) 04/22/18 06:00 Est GFR (Non-Af Amer) > 60 (60-) 04/22/18 06:00 Glucose 86 mg/dL (74-106) 04/22/18 06:00 Calcium 8.6 mg/dL (8.4-10.2) 04/22/18 06:00 Total Bilirubin 0.2 mg/dL (0.2-1.3) 04/22/18 06:00 AST 18 U/L (15-46) 04/22/18 06:00 ALT 31 U/L (13-69) 04/22/18 06:00 Alkaline Phosphatase 108 U/L (38-126) 04/22/18 06:00 Total Protein 6.1 g/dL (6.3-8.2) L 04/22/18 06:00 Albumin 3.1 g/dL (3.5-5.0) L 04/22/18 06:00 Assessment/Plan - Assessment/Plan (1) Closed fracture of right knee region Status: Acute Current Visit: Yes Assessment: Continue at present and occupational therapy. (2) Diabetes mellitus type 2 Status: Chronic Current Visit: No (3) Urinary retention with incomplete bladder emptying Status: Acute Current Visit: Yes Assessment: Shultz catheter is still in place. Will go ahead and try to remove the catheter early next week. (4) Constipation Status: Acute Current Visit: Yes Qualifiers: Constipation type: slow transit constipation Qualified Code(s): K59.01 - Slow transit constipation Assessment: stable
[2018-05-08] MEDS: SENNOSIDES/DOCUSATE SODIUM 1 EACH TABLET PO SCH (08:47)
[2018-05-08] MEDS: oxyCODONE/ACETAMINOPHEN 5/325 TABLET PO PRN (08:47)
[2018-05-08] MEDS: CITALOPRAM HYDROBROMIDE 20 MG TABLET PO SCH (08:47)
[2018-05-08] MEDS: ASPIRIN 325 MG TABLET PO SCH (08:48)
[2018-05-08] MEDS: CELECOXIB 100 MG CAPSULE PO SCH (08:48)
[2018-05-08] MEDS: LIDOCAINE 5% ADH..PATCH TP SCH (08:48)
[2018-05-08 11:28] VITALS: BP 105/64
== END 2018-05-08 10:55 | disposition home health service (06) | DRG 561 ==
LOC: SOUTH 17:01
PROVIDERS: ADMIT Family Medicine; ATTEND Family Medicine
DX: S82.001D Unspecified fracture of right patella, subsequent encounter for closed fracture with routine healing (principal); W19.XXXD Unspecified fall, subsequent encounter; Z98.890 Other specified postprocedural states; M19.90 Unspecified osteoarthritis, unspecified site; I50.9 Heart failure, unspecified; E11.9 Type 2 diabetes mellitus without complications; F41.8 Other specified anxiety disorders; N32.89 Other specified disorders of bladder; R33.8 Other retention of urine; K59.00 Constipation, unspecified
CPT/HCPCS: 73560; 80053; 85025; 97110; 97112; 97161; 97165; 97530; 97535; A9270; J3010; Q0163

== ENCOUNTER 2018-09-06 13:50 | Inpatient (IN) | payer MEDICARE, OTHER ==
[2018-09-06 14:28] VITALS: BMI 42.8
[2018-09-06] MEDS ORDERED: FUROSEMIDE 20 MG TABLET PO PRN (15:30)
--- NOTE | 2018-09-06 15:40 | History and Physical Report ---
History of Present Illnes - History of Present Illness Reason for Visit: Weakness History of Present Illness: Patient fell 09-02-18 at her home and suffered a R subtrochanteric hip fx. She underwent repair but was too weak to go home so will be admitted SNF. Patient has not had a BM in 7 days. She had her steele pulled just before transport. Also apparently wound vac was discontinued prior to d/c. Family reports patient did ok immediately post op but then developed weakness and inability to use her extremities, especially the L. Nursing report states a CT was negative and the thought was it was hydrocodone. They then stated she was given hydrocodone prior to discharge. Family said she was NOT to get this medicine anymore. At any rate, patient feels she got a little worse for whatever reason this morning. 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 negative: Fever Eyes: negative: vision change ENT: negative: Ear Pain, Nose Discharge Respiratory: negative: Cough, Shortness of Breath Cardiovascular: negative: Chest Pain Gastrointestinal: Constipation. negative: Nausea, Vomiting, Abdominal Pain Genitourinary: Retention. negative: Dysuria Musculoskeletal: Leg Pain. negative: Neck Pain Skin: negative: Rash Neurological: Weakness, Incoordination. negative: Numbness, Change in Speech, Confusion - Medications/Allergies Allergies/Adverse Reactions: Allergies Allergy/AdvReac Type Severity Reaction Status Date / Time levofloxacin [From Levaquin] Allergy Intermediate Rash Verified 04/17/18 00:24 quinine [Quinine] Allergy Intermediate Rash Verified 04/17/18 00:24 Home Medications: Home Medications Acetaminophen [Extra Strength Non-Aspirin] 1,000 mg PO Q6 PRN 09/06/18 Clonazepam [Klonopin] 0.5 mg PO TID PRN 09/06/18 Duloxetine HCl 60 mg PO DAILY 09/06/18 Ergocalciferol (Vitamin D2) [Drisdol] 50,000 unit PO WEEK 09/06/18 Gabapentin [Neurontin] 600 mg PO TID 09/06/18 Ibuprofen 400 mg PO BID PRN 09/06/18 Insulin Glargine,Hum.rec.anlog [Basaglar Kwik-Pen] 30 units PO BID 09/06/18 Omeprazole 20 mg PO BID 09/06/18 Rivaroxaban [Xarelto] 10 mg PO 1700 09/06/18 Current Inpatient Medications: Current Inpatient Medications Acetaminophen (Tylenol Extra Strength) 1,000 mg PO Q6 PRN PRN Reason: PAIN Ergocalciferol (Vitamin D2) 50,000 unit PO WEEK SAMANTHA Furosemide (Lasix) 20 mg PO DAILY PRN PRN Reason: Swelling Ibuprofen (Advil) 600 mg PO Q8H PRN PRN Reason: PAIN Miscellaneous (Clonazepam [Klonopin]) 0.5 mg PO TID PRN PRN Reason: Anxiety Miscellaneous (Duloxetine Hcl [Duloxetine Hcl]) 60 mg PO DAILY [facility] Miscellaneous (Gabapentin [Neurontin]) 600 mg PO TID [facility] Miscellaneous (Insulin Glargine,Hum.Rec.Anlog) 30 units PO BID [facility] Miscellaneous (Omeprazole) 20 mg PO BID [facility] Rivaroxaban (Xarelto) 10 mg PO 1700 [facility] Exam - Exam Vital Signs: Vital Signs (72 hours) 09/06/18 09/06/18 14:15 14:21 Temperature 97.6 F 97.6 F Pulse Rate [ 84 84 Right] Respiratory 18 18 Rate Blood Pressure 105/64 [Left Arm] Blood Pressure 107/61 107/61 [Right Arm] O2 Sat by Pulse 94 94 Oximetry General: Alert, Oriented to Person, Oriented to Place, Oriented to Time, Cooperative, No acute distress HEENT: Atraumatic, PERRLA, EOMI, Mouth Mucous membr. moist/[place], Nose Mucous membr. moist/[place] Neck: Normal Range of Motion Lungs: Clear to auscultation Cardiovascular: Regular rate Abdomen: Normal bowel sounds, Soft, No tenderness Integumentary: Normal, Other (benja on R lateral leg look good. No drainage or erythema. ) Extremities: No edema Neurological: Left Sided Weakness (L arm slow to raise) Psych/Mental Status: Mental status NL, Mood NL, Appropriate Affect, Intact Judgment Assessment/Plan - Assessment/Plan (1) Closed right hip fracture Status: Acute Current Visit: Yes Plan: Patient will be admitted SNF care for PT/OT. She is on xarelto 10 mg daily or Eliquis 2.5 mg bid or lovenox 30 mg SQ q12 hr for DVT prevention for 6 weeks total from 09-02-18. Stop date will be 10-14-18. She is WBAT. She is to be on Vit. D 50,000 weekly x 8 weeks as well as calcium 1500 mg daily in divided doses. Also included is gabapentin 300 mg tid x 90 days. She had a wound vac before discharge (per family due to her size). Ortho wants her to see Dr. Jessenia Rdz for bone health management. They also want to see her back in 2 weeks for a wound check and staple removal. Then they want her back in 6 weeks with xray of hip. (2) Constipation Status: Acute Current Visit: Yes Qualifiers: Constipation type: slow transit constipation Qualified Code(s): K59.01 - Slow transit constipation Plan: Suspect this is playing a role in her urinary retention. Will give magnesium citrate. (3) Urinary retention with incomplete bladder emptying Status: Acute Current Visit: Yes Plan: Will work on pushing po fluids and having a BM. Watch. May need to replace steele. (4) Diabetes mellitus type 2 Status: Chronic Current Visit: Yes Plan: Will continue home insulin regimen. Watch BS closely. VTE Assessment - RISK FACTOR SCORE VTE RISK FACTOR SCORES: AGE OVER 60 YEARS, MAJOR SURGERY/ANESTHESIA TIME > 1 HOUR, HIP, PELVIS, OR LEG FX - RISK VTE HIGH RISK: SCORE OF 3-4 (RISK PROXIMAL DVT 4-8%) PROPHYLAXIS NEEDED
[2018-09-06] MEDS ORDERED: ENOXAPARIN SODIUM 40 MG/0.4 ML DISP.SYRIN SQ SCH (16:00)
[2018-09-06] MEDS ORDERED: GABAPENTIN 300 MG CAPSULE ONE (16:50)
[2018-09-06] MEDS: RIVAROXABAN 10 MG TABLET PO SCH (17:27)
[2018-09-06] MEDS: Non-Formulary 1 EACH (Gabapentin [Neurontin] 600 MG) PO SCH (17:28)
[2018-09-06] MEDS ORDERED: MAGNESIUM CITRATE 296 ML BOTTLE PO ONE (19:00)
[2018-09-06] MEDS ORDERED: OMEPRAZOLE 20 MG CAPSULE.DR ONE (19:16)
[2018-09-06] MEDS: OMEPRAZOLE 20 MG PO SCH (20:00)
[2018-09-06] MEDS: IBUPROFEN 200 MG TABLET PO PRN (20:03)
[2018-09-06] MEDS ORDERED: INSULIN GLARGINE,HUM.REC.ANLOG 100 UNIT/ML PEN.INJCTR SQ ONE (20:58)
[2018-09-06] MEDS: INSULIN GLARGINE HUM REC ANLOG 30 UNIT PO SCH (22:05)
[2018-09-06] MEDS: ACETAMINOPHEN 500 MG TABLET PO PRN (23:37)
[2018-09-07] MEDS ORDERED: clonazePAM 0.5 MG TABLET PO ONE ×3 (01:54→23:05)
[2018-09-07] MEDS: CLONAZEPAM 0.5 MG PO PRN ×3 (01:56→23:08)
[2018-09-07] MEDS ORDERED: GABAPENTIN 300 MG CAPSULE ONE ×3 (08:16→16:58)
[2018-09-07] MEDS: Non-Formulary 1 EACH (Gabapentin [Neurontin] 600 MG) PO SCH ×3 (09:25→17:03)
[2018-09-07] MEDS: INSULIN GLARGINE HUM REC ANLOG 30 UNIT PO SCH ×2 (09:25→20:04)
[2018-09-07] MEDS: OMEPRAZOLE 20 MG PO SCH ×2 (09:26→20:01)
[2018-09-07] MEDS ORDERED: Non-Formulary 1 EACH (Duloxetine Hcl [Duloxetine Hcl] 60 MG) PO SCH (12:00)
[2018-09-07] MEDS: RIVAROXABAN 10 MG TABLET PO SCH (17:03)
[2018-09-07] MEDS ORDERED: DULoxetine HCL 30 MG CAPSULE.DR PO ONE (18:57)
[2018-09-07] MEDS ORDERED: OMEPRAZOLE 20 MG CAPSULE.DR ONE (18:57)
[2018-09-07] MEDS: Non-Formulary 1 EACH (Duloxetine Hcl [Duloxetine Hcl] 60 MG) PO SCH (20:01)
[2018-09-07] MEDS: ACETAMINOPHEN 500 MG TABLET PO PRN (20:02)
[2018-09-07] MEDS: IBUPROFEN 200 MG TABLET PO PRN (23:07)
[2018-09-08] MEDS ORDERED: DULoxetine HCL 30 MG CAPSULE.DR PO ONE (08:40)
[2018-09-08] MEDS ORDERED: GABAPENTIN 300 MG CAPSULE ONE ×3 (08:40→17:27)
[2018-09-08] MEDS ORDERED: OMEPRAZOLE 20 MG CAPSULE.DR ONE ×2 (08:41→19:09)
--- NOTE | 2018-09-08 09:13 | Inpatient Progress Note ---
Subjective - Required Recertification Statement I anticipate X number of days because-include discharge plan: 10 - Review of Systems Subjective: Patient had a large BM and has been urinating fine since. Her insulin has been on hold due to BS 90's. last night it was 200. She feels her L side is improving. Objective - Exam Vitals and I&O: Vital Signs Temp 99.1 F 09/07/18 20:29 Pulse 85 09/07/18 20:29 Resp 20 09/07/18 20:29 BP 130/53 09/07/18 20:29 Pulse Ox 96 09/07/18 20:29 Intake & Output 09/07/18 09/07/18 09/08/18 11:59 23:59 11:59 Intake Total 480 480 240 Balance 480 480 240 Intake: Oral 480 480 240 Other: Voiding Method Bedpan Bedpan # Voids 1 # Bowel Movements 1 General: Alert, Oriented to Person, Oriented to Place, Oriented to Time, Cooperative, No acute distress Lungs: Clear to auscultation, Normal air movement, Speaks full Sentences Cardiovascular: Regular rate Assessment/Plan - Assessment/Plan (1) Closed right hip fracture Status: Acute Current Visit: Yes (2) Constipation Status: Acute Current Visit: Yes Qualifiers: Constipation type: slow transit constipation Qualified Code(s): K59.01 - Slow transit constipation (3) Urinary retention with incomplete bladder emptying Status: Acute Current Visit: Yes (4) Diabetes mellitus type 2 Status: Chronic Current Visit: Yes Plan: Will cut basaglar to 15 units at night. Watch BS closely. May need SSI vs adding more basal insulin.
[2018-09-08] MEDS: Non-Formulary 1 EACH (Duloxetine Hcl [Duloxetine Hcl] 60 MG) PO SCH (09:27)
[2018-09-08] MEDS: Non-Formulary 1 EACH (Gabapentin [Neurontin] 600 MG) PO SCH ×3 (09:27→17:31)
[2018-09-08] MEDS: OMEPRAZOLE 20 MG PO SCH ×2 (09:28→20:05)
[2018-09-08] MEDS: ACETAMINOPHEN 500 MG TABLET PO PRN (16:16)
[2018-09-08] MEDS: IBUPROFEN 200 MG TABLET PO PRN (16:52)
[2018-09-08] MEDS: RIVAROXABAN 10 MG TABLET PO SCH (17:28)
[2018-09-08] MEDS ORDERED: clonazePAM 0.5 MG TABLET PO ONE (19:45)
[2018-09-08] MEDS: CLONAZEPAM 0.5 MG PO PRN (20:06)
[2018-09-08] MEDS ORDERED: INSULIN GLARGINE HUM REC ANLOG 10 UNIT PO SCH (21:00)
[2018-09-09 08:01] LABS: BASOPHILS % 0.4 (0.0-1.5); EOSINOPHILS % 8.2 % (0.0-6.8); MONOCYTES % 7.8 % (0.0-11.0); NEUTROPHILS # 3.8 # k/uL (1.4-7.7)
[2018-09-09 08:02] LABS: eGFR (Non-African) > 60
[2018-09-09] MEDS ORDERED: DULoxetine HCL 30 MG CAPSULE.DR PO ONE (08:11)
[2018-09-09] MEDS ORDERED: OMEPRAZOLE 20 MG CAPSULE.DR ONE (08:11)
[2018-09-09] MEDS ORDERED: clonazePAM 0.5 MG TABLET PO ONE (08:11)
[2018-09-09] MEDS ORDERED: GABAPENTIN 300 MG CAPSULE ONE (08:11)
[2018-09-09] MEDS ORDERED: IBUPROFEN 200 MG TABLET PO ONE (08:12)
[2018-09-09] MEDS: DULoxetine HCL 30 MG CAPSULE.DR PO SCH (08:51)
[2018-09-09] MEDS: GABAPENTIN 300 MG CAPSULE PO SCH ×3 (08:52→17:26)
[2018-09-09] MEDS: IBUPROFEN 200 MG TABLET PO PRN ×2 (08:52→17:27)
[2018-09-09] MEDS: clonazePAM 0.5 MG TABLET PO PRN ×2 (08:52→17:26)
[2018-09-09] MEDS: OMEPRAZOLE 20 MG CAPSULE.DR PO SCH ×2 (08:53→17:26)
[2018-09-09] MEDS: ACETAMINOPHEN 500 MG TABLET PO PRN (12:47)
[2018-09-09] MEDS: RIVAROXABAN 10 MG TABLET PO SCH (17:26)
[2018-09-09] MEDS: oxyCODONE HCL 5 MG TABLET PO PRN (19:49)
[2018-09-09] MEDS: INSULIN GLARGINE,HUM.REC.ANLOG 100 UNIT/ML PEN.INJCTR SQ SCH (20:43)
[2018-09-10] MEDS ORDERED: RED CRASH CART TAGS 1 EACH MC ONE (04:53)
[2018-09-10] MEDS: oxyCODONE HCL 5 MG TABLET PO PRN ×3 (06:37→21:37)
[2018-09-10] MEDS: OMEPRAZOLE 20 MG CAPSULE.DR PO SCH ×2 (06:38→16:35)
[2018-09-10] MEDS: DULoxetine HCL 30 MG CAPSULE.DR PO SCH (08:53)
[2018-09-10] MEDS: GABAPENTIN 300 MG CAPSULE PO SCH ×3 (08:54→17:39)
[2018-09-10] MEDS: ACETAMINOPHEN 500 MG TABLET PO PRN (12:14)
[2018-09-10] MEDS: RIVAROXABAN 10 MG TABLET PO SCH (17:39)
[2018-09-10] MEDS: INSULIN GLARGINE,HUM.REC.ANLOG 100 UNIT/ML PEN.INJCTR SQ SCH (20:39)
[2018-09-11] MEDS: oxyCODONE HCL 5 MG TABLET PO PRN ×3 (01:41→23:34)
[2018-09-11] MEDS: OMEPRAZOLE 20 MG CAPSULE.DR PO SCH ×2 (07:22→16:23)
[2018-09-11] MEDS: DULoxetine HCL 30 MG CAPSULE.DR PO SCH (08:20)
[2018-09-11] MEDS: GABAPENTIN 300 MG CAPSULE PO SCH ×3 (08:21→17:43)
[2018-09-11] MEDS: ACETAMINOPHEN 500 MG TABLET PO PRN (16:23)
[2018-09-11] MEDS: RIVAROXABAN 10 MG TABLET PO SCH (17:43)
[2018-09-11] MEDS: INSULIN GLARGINE,HUM.REC.ANLOG 100 UNIT/ML PEN.INJCTR SQ SCH (20:41)
[2018-09-12] MEDS: oxyCODONE HCL 5 MG TABLET PO PRN ×2 (01:36→08:35)
[2018-09-12] MEDS: OMEPRAZOLE 20 MG CAPSULE.DR PO SCH ×2 (06:11→17:11)
[2018-09-12] MEDS: DULoxetine HCL 30 MG CAPSULE.DR PO SCH (08:35)
[2018-09-12] MEDS: GABAPENTIN 300 MG CAPSULE PO SCH ×3 (08:35→17:11)
[2018-09-12] MEDS: RIVAROXABAN 10 MG TABLET PO SCH (17:11)
[2018-09-12] MEDS: IBUPROFEN 200 MG TABLET PO PRN (22:08)
[2018-09-12] MEDS: INSULIN GLARGINE,HUM.REC.ANLOG 100 UNIT/ML PEN.INJCTR SQ SCH (22:09)
[2018-09-13] MEDS: OMEPRAZOLE 20 MG CAPSULE.DR PO SCH ×2 (06:17→17:31)
[2018-09-13] MEDS: oxyCODONE HCL 5 MG TABLET PO PRN ×2 (06:17→22:31)
[2018-09-13] MEDS: DULoxetine HCL 30 MG CAPSULE.DR PO SCH (08:30)
[2018-09-13] MEDS: GABAPENTIN 300 MG CAPSULE PO SCH ×3 (08:31→17:32)
[2018-09-13] MEDS: ERGOCALCIFEROL (VITAMIN D2) 50,000 UNIT CAPSULE PO SCH (08:32)
[2018-09-13] MEDS: ACETAMINOPHEN 500 MG TABLET PO PRN (08:34)
[2018-09-13] MEDS: IBUPROFEN 200 MG TABLET PO PRN (11:05)
[2018-09-13] MEDS: RIVAROXABAN 10 MG TABLET PO SCH (17:32)
[2018-09-13] MEDS: INSULIN GLARGINE,HUM.REC.ANLOG 100 UNIT/ML PEN.INJCTR SQ SCH (20:15)
[2018-09-14] MEDS: oxyCODONE HCL 5 MG TABLET PO PRN (06:00)
[2018-09-14] MEDS: OMEPRAZOLE 20 MG CAPSULE.DR PO SCH ×2 (06:00→16:44)
[2018-09-14] MEDS: DULoxetine HCL 30 MG CAPSULE.DR PO SCH (08:12)
[2018-09-14] MEDS: GABAPENTIN 300 MG CAPSULE PO SCH ×3 (08:13→16:44)
[2018-09-14] MEDS: IBUPROFEN 200 MG TABLET PO PRN (10:13)
[2018-09-14] MEDS: RIVAROXABAN 10 MG TABLET PO SCH (16:44)
[2018-09-14] MEDS: INSULIN GLARGINE,HUM.REC.ANLOG 100 UNIT/ML PEN.INJCTR SQ SCH (21:08)
[2018-09-15] MEDS: OMEPRAZOLE 20 MG CAPSULE.DR PO SCH ×2 (05:59→16:16)
[2018-09-15] MEDS: DULoxetine HCL 30 MG CAPSULE.DR PO SCH (08:24)
[2018-09-15] MEDS: GABAPENTIN 300 MG CAPSULE PO SCH ×3 (08:24→17:58)
[2018-09-15] MEDS: DOCUSATE SODIUM 100 MG CAPSULE PO SCH ×2 (10:10→20:28)
[2018-09-15] MEDS: ACETAMINOPHEN 500 MG TABLET PO PRN (10:10)
[2018-09-15] MEDS: RIVAROXABAN 10 MG TABLET PO SCH (16:30)
[2018-09-15] MEDS: INSULIN GLARGINE,HUM.REC.ANLOG 100 UNIT/ML PEN.INJCTR SQ SCH (20:28)
[2018-09-15] MEDS: IBUPROFEN 200 MG TABLET PO PRN (23:05)
[2018-09-16] MEDS: OMEPRAZOLE 20 MG CAPSULE.DR PO SCH ×2 (06:00→17:22)
[2018-09-16] MEDS: IBUPROFEN 200 MG TABLET PO PRN (08:47)
[2018-09-16] MEDS: DULoxetine HCL 30 MG CAPSULE.DR PO SCH (08:47)
[2018-09-16] MEDS: DOCUSATE SODIUM 100 MG CAPSULE PO SCH ×2 (08:47→21:42)
[2018-09-16] MEDS: GABAPENTIN 300 MG CAPSULE PO SCH ×3 (08:48→17:23)
--- NOTE | 2018-09-16 08:56 | Diagnostic Imaging Report ---
RUBY MONTGOMERY [facility] [address] [facility] [address] [address] Report Submission Date: Sep 16, 2018 8:53:36 AM MANAGER PAPER Patient Study Name: LESVIA WILBURN Date: Sep 16, 2018 8:29:21 AM MANAGER PAPER Modality Type: DX Gender: F Description: TIBIA & FIBULA 2 VIEW : 52 Institution: [facility] Physician: RUBY MONTGOMERY Examination: Plain film right tibia/fibula History: Rt tib fib pain recent hip replacement as of last week Comparison exams: None available for direct review. Findings: 3 views of the right tibia fibula demonstrates diffuse osteopenia. Proximal tibial fracture fixation hardware. Remaining cortical margins of the tibia and fibula without gross irregularity. Knee and ankle articular degenerative changes. Impression: Osteopenia and degenerative changes. Proximal tibial fracture fixation. Electronically signed on Sep 16, 2018 8:53:36 AM MANAGER PAPER by: Paul DEGROOT
[2018-09-16] MEDS: ACETAMINOPHEN 500 MG TABLET PO PRN (12:00)
[2018-09-16] MEDS: POLYETHYLENE GLYCOL 3350 17 GM POWD.PACK PO SCH (12:31)
[2018-09-16] MEDS: RIVAROXABAN 10 MG TABLET PO SCH (17:23)
[2018-09-16] MEDS: INSULIN GLARGINE,HUM.REC.ANLOG 100 UNIT/ML PEN.INJCTR SQ SCH (21:54)
[2018-09-16] MEDS: ZOLPIDEM TARTRATE 5 MG TABLET PO PRN (22:01)
[2018-09-17] MEDS: IBUPROFEN 200 MG TABLET PO PRN ×2 (04:34→14:54)
[2018-09-17] MEDS: OMEPRAZOLE 20 MG CAPSULE.DR PO SCH ×2 (05:57→17:23)
[2018-09-17] MEDS: GABAPENTIN 300 MG CAPSULE PO SCH ×3 (09:02→17:23)
[2018-09-17] MEDS: DOCUSATE SODIUM 100 MG CAPSULE PO SCH ×2 (09:02→20:27)
[2018-09-17] MEDS: DULoxetine HCL 30 MG CAPSULE.DR PO SCH (09:02)
[2018-09-17] MEDS: ACETAMINOPHEN 500 MG TABLET PO PRN (09:04)
[2018-09-17] MEDS: POLYETHYLENE GLYCOL 3350 17 GM POWD.PACK PO SCH (11:19)
[2018-09-17] MEDS: RIVAROXABAN 10 MG TABLET PO SCH (17:23)
[2018-09-17] MEDS: ZOLPIDEM TARTRATE 5 MG TABLET PO PRN (20:31)
[2018-09-17] MEDS: INSULIN GLARGINE,HUM.REC.ANLOG 100 UNIT/ML PEN.INJCTR SQ SCH (20:32)
[2018-09-18] MEDS: IBUPROFEN 200 MG TABLET PO PRN (05:52)
[2018-09-18] MEDS: OMEPRAZOLE 20 MG CAPSULE.DR PO SCH ×2 (06:47→16:23)
[2018-09-18] MEDS: GABAPENTIN 300 MG CAPSULE PO SCH ×3 (08:52→17:36)
[2018-09-18] MEDS: DULoxetine HCL 30 MG CAPSULE.DR PO SCH (08:52)
[2018-09-18] MEDS: ACETAMINOPHEN 500 MG TABLET PO PRN (08:53)
[2018-09-18] MEDS: DOCUSATE SODIUM 100 MG CAPSULE PO SCH ×2 (08:53→20:18)
[2018-09-18] MEDS: POLYETHYLENE GLYCOL 3350 17 GM POWD.PACK PO SCH (11:52)
[2018-09-18] MEDS: oxyCODONE HCL 5 MG TABLET PO PRN ×2 (14:13→20:17)
[2018-09-18] MEDS: RIVAROXABAN 10 MG TABLET PO SCH (16:23)
[2018-09-18] MEDS: ZOLPIDEM TARTRATE 5 MG TABLET PO PRN (20:18)
[2018-09-18] MEDS: INSULIN GLARGINE,HUM.REC.ANLOG 100 UNIT/ML PEN.INJCTR SQ SCH (20:23)
[2018-09-19] MEDS: oxyCODONE HCL 5 MG TABLET PO PRN ×3 (03:15→18:26)
[2018-09-19] MEDS: OMEPRAZOLE 20 MG CAPSULE.DR PO SCH ×2 (05:36→17:01)
[2018-09-19] MEDS: DULoxetine HCL 30 MG CAPSULE.DR PO SCH (07:46)
[2018-09-19] MEDS: GABAPENTIN 300 MG CAPSULE PO SCH ×3 (07:46→17:01)
[2018-09-19] MEDS: DOCUSATE SODIUM 100 MG CAPSULE PO SCH ×2 (07:47→20:29)
[2018-09-19] MEDS: IBUPROFEN 200 MG TABLET PO PRN (07:47)
[2018-09-19] MEDS: POLYETHYLENE GLYCOL 3350 17 GM POWD.PACK PO SCH (10:00)
[2018-09-19] MEDS: RIVAROXABAN 10 MG TABLET PO SCH (17:01)
[2018-09-19] MEDS: ZOLPIDEM TARTRATE 5 MG TABLET PO PRN (20:29)
[2018-09-19] MEDS: INSULIN GLARGINE,HUM.REC.ANLOG 100 UNIT/ML PEN.INJCTR SQ SCH (20:31)
[2018-09-20] MEDS: oxyCODONE HCL 5 MG TABLET PO PRN ×2 (03:45→10:49)
[2018-09-20] MEDS: OMEPRAZOLE 20 MG CAPSULE.DR PO SCH ×2 (06:20→17:09)
[2018-09-20] MEDS: DOCUSATE SODIUM 100 MG CAPSULE PO SCH ×2 (08:18→20:06)
[2018-09-20] MEDS: ERGOCALCIFEROL (VITAMIN D2) 50,000 UNIT CAPSULE PO SCH (08:18)
[2018-09-20] MEDS: GABAPENTIN 300 MG CAPSULE PO SCH ×3 (08:18→17:08)
[2018-09-20] MEDS: DULoxetine HCL 30 MG CAPSULE.DR PO SCH (08:18)
[2018-09-20] MEDS: POLYETHYLENE GLYCOL 3350 17 GM POWD.PACK PO SCH (12:41)
[2018-09-20] MEDS: IBUPROFEN 200 MG TABLET PO PRN (12:53)
[2018-09-20] MEDS: RIVAROXABAN 10 MG TABLET PO SCH (17:09)
[2018-09-20] MEDS: ACETAMINOPHEN 500 MG TABLET PO PRN (18:37)
[2018-09-20] MEDS: INSULIN GLARGINE,HUM.REC.ANLOG 100 UNIT/ML PEN.INJCTR SQ SCH (20:04)
[2018-09-21] MEDS: OMEPRAZOLE 20 MG CAPSULE.DR PO SCH ×2 (06:09→16:23)
[2018-09-21] MEDS: IBUPROFEN 200 MG TABLET PO PRN (08:22)
[2018-09-21] MEDS: GABAPENTIN 300 MG CAPSULE PO SCH ×3 (08:23→20:14)
[2018-09-21] MEDS: DULoxetine HCL 30 MG CAPSULE.DR PO SCH (08:23)
[2018-09-21] MEDS: DOCUSATE SODIUM 100 MG CAPSULE PO SCH ×2 (08:23→20:15)
[2018-09-21] MEDS: oxyCODONE HCL 5 MG TABLET PO PRN ×2 (10:39→16:23)
[2018-09-21] MEDS: POLYETHYLENE GLYCOL 3350 17 GM POWD.PACK PO SCH (12:22)
[2018-09-21] MEDS: RIVAROXABAN 10 MG TABLET PO SCH (16:23)
[2018-09-21] MEDS: INSULIN GLARGINE,HUM.REC.ANLOG 100 UNIT/ML PEN.INJCTR SQ SCH (20:15)
[2018-09-21] MEDS: ACETAMINOPHEN 500 MG TABLET PO PRN (20:49)
[2018-09-22] MEDS: OMEPRAZOLE 20 MG CAPSULE.DR PO SCH ×2 (06:22→16:22)
[2018-09-22] MEDS: GABAPENTIN 300 MG CAPSULE PO SCH ×3 (08:34→17:46)
[2018-09-22] MEDS: DOCUSATE SODIUM 100 MG CAPSULE PO SCH ×2 (08:34→20:08)
[2018-09-22] MEDS: DULoxetine HCL 30 MG CAPSULE.DR PO SCH (08:34)
[2018-09-22] MEDS: oxyCODONE HCL 5 MG TABLET PO PRN ×2 (11:14→20:08)
[2018-09-22] MEDS: POLYETHYLENE GLYCOL 3350 17 GM POWD.PACK PO SCH (11:47)
[2018-09-22] MEDS: RIVAROXABAN 10 MG TABLET PO SCH (16:28)
[2018-09-22] MEDS: ZOLPIDEM TARTRATE 5 MG TABLET PO PRN (20:09)
[2018-09-22] MEDS: INSULIN GLARGINE,HUM.REC.ANLOG 100 UNIT/ML PEN.INJCTR SQ SCH (20:10)
[2018-09-23] MEDS: oxyCODONE HCL 5 MG TABLET PO PRN ×2 (03:10→09:58)
[2018-09-23] MEDS: OMEPRAZOLE 20 MG CAPSULE.DR PO SCH ×2 (06:01→15:54)
[2018-09-23] MEDS: DOCUSATE SODIUM 100 MG CAPSULE PO SCH ×2 (09:16→20:00)
[2018-09-23] MEDS: DULoxetine HCL 30 MG CAPSULE.DR PO SCH (09:16)
[2018-09-23] MEDS: GABAPENTIN 300 MG CAPSULE PO SCH ×3 (09:19→23:05)
[2018-09-23] MEDS: IBUPROFEN 200 MG TABLET PO PRN (13:28)
[2018-09-23] MEDS: POLYETHYLENE GLYCOL 3350 17 GM POWD.PACK PO SCH (13:32)
[2018-09-23] MEDS: RIVAROXABAN 10 MG TABLET PO SCH (16:23)
[2018-09-23] MEDS: INSULIN GLARGINE,HUM.REC.ANLOG 100 UNIT/ML PEN.INJCTR SQ SCH (20:02)
[2018-09-23] MEDS: ZOLPIDEM TARTRATE 5 MG TABLET PO PRN (23:05)
[2018-09-24] MEDS: OMEPRAZOLE 20 MG CAPSULE.DR PO SCH ×2 (06:00→16:08)
[2018-09-24] MEDS: ACETAMINOPHEN 500 MG TABLET PO PRN (06:02)
[2018-09-24] MEDS: GABAPENTIN 300 MG CAPSULE PO SCH ×3 (08:36→23:10)
[2018-09-24] MEDS: DOCUSATE SODIUM 100 MG CAPSULE PO SCH ×2 (08:36→19:40)
[2018-09-24] MEDS: DULoxetine HCL 30 MG CAPSULE.DR PO SCH (08:36)
[2018-09-24] MEDS: POLYETHYLENE GLYCOL 3350 17 GM POWD.PACK PO SCH (11:08)
[2018-09-24] MEDS: RIVAROXABAN 10 MG TABLET PO SCH (17:04)
[2018-09-24] MEDS: INSULIN GLARGINE,HUM.REC.ANLOG 100 UNIT/ML PEN.INJCTR SQ SCH (19:41)
[2018-09-24] MEDS: ZOLPIDEM TARTRATE 5 MG TABLET PO PRN (23:16)
[2018-09-25] MEDS: OMEPRAZOLE 20 MG CAPSULE.DR PO SCH ×2 (06:10→16:03)
[2018-09-25] MEDS: ACETAMINOPHEN 500 MG TABLET PO PRN ×2 (07:19→22:16)
[2018-09-25] MEDS: DOCUSATE SODIUM 100 MG CAPSULE PO SCH ×2 (08:22→20:08)
[2018-09-25] MEDS: GABAPENTIN 300 MG CAPSULE PO SCH ×3 (08:23→22:13)
[2018-09-25] MEDS: DULoxetine HCL 30 MG CAPSULE.DR PO SCH (08:23)
[2018-09-25] MEDS: POLYETHYLENE GLYCOL 3350 17 GM POWD.PACK PO SCH (10:13)
[2018-09-25] MEDS: RIVAROXABAN 10 MG TABLET PO SCH (16:07)
[2018-09-25] MEDS: INSULIN GLARGINE,HUM.REC.ANLOG 100 UNIT/ML PEN.INJCTR SQ SCH (20:10)
[2018-09-25] MEDS: IBUPROFEN 200 MG TABLET PO PRN (20:24)
[2018-09-25] MEDS: ZOLPIDEM TARTRATE 5 MG TABLET PO PRN (22:13)
[2018-09-26] MEDS: clonazePAM 0.5 MG TABLET PO PRN (01:30)
[2018-09-26] MEDS: OMEPRAZOLE 20 MG CAPSULE.DR PO SCH ×2 (06:06→17:02)
[2018-09-26] MEDS: DULoxetine HCL 30 MG CAPSULE.DR PO SCH (09:26)
[2018-09-26] MEDS: DOCUSATE SODIUM 100 MG CAPSULE PO SCH ×2 (09:26→20:24)
[2018-09-26] MEDS: GABAPENTIN 300 MG CAPSULE PO SCH ×3 (09:26→21:46)
[2018-09-26] MEDS: IBUPROFEN 200 MG TABLET PO PRN (11:05)
[2018-09-26] MEDS: POLYETHYLENE GLYCOL 3350 17 GM POWD.PACK PO SCH (12:03)
[2018-09-26] MEDS: RIVAROXABAN 10 MG TABLET PO SCH (17:02)
[2018-09-26] MEDS: ACETAMINOPHEN 500 MG TABLET PO PRN (17:02)
[2018-09-26] MEDS: oxyCODONE HCL 5 MG TABLET PO PRN (17:39)
[2018-09-26] MEDS: INSULIN GLARGINE,HUM.REC.ANLOG 100 UNIT/ML PEN.INJCTR SQ SCH (20:15)
[2018-09-26] MEDS: ZOLPIDEM TARTRATE 5 MG TABLET PO PRN (21:47)
[2018-09-27] MEDS: oxyCODONE HCL 5 MG TABLET PO PRN ×3 (03:44→22:30)
[2018-09-27] MEDS: OMEPRAZOLE 20 MG CAPSULE.DR PO SCH ×2 (06:04→17:05)
[2018-09-27] MEDS: IBUPROFEN 200 MG TABLET PO PRN (06:43)
[2018-09-27] MEDS ORDERED: INSULIN GLARGINE,HUM.REC.ANLOG 100 UNIT/ML PEN.INJCTR SQ SCH (09:00)
[2018-09-27] MEDS: DOCUSATE SODIUM 100 MG CAPSULE PO SCH ×2 (10:32→20:02)
[2018-09-27] MEDS: DULoxetine HCL 30 MG CAPSULE.DR PO SCH (10:32)
[2018-09-27] MEDS: ERGOCALCIFEROL (VITAMIN D2) 50,000 UNIT CAPSULE PO SCH (10:32)
[2018-09-27] MEDS: GABAPENTIN 300 MG CAPSULE PO SCH ×3 (10:32→22:26)
[2018-09-27] MEDS: INSULIN GLARGINE,HUM.REC.ANLOG 100 UNIT/ML PEN.INJCTR SQ SCH ×2 (10:33→20:03)
[2018-09-27] MEDS: POLYETHYLENE GLYCOL 3350 17 GM POWD.PACK PO SCH (10:55)
[2018-09-27] MEDS: RIVAROXABAN 10 MG TABLET PO SCH (17:05)
[2018-09-27] MEDS: ZOLPIDEM TARTRATE 5 MG TABLET PO PRN (22:26)
[2018-09-28] MEDS: oxyCODONE HCL 5 MG TABLET PO PRN ×3 (05:18→20:10)
[2018-09-28] MEDS: OMEPRAZOLE 20 MG CAPSULE.DR PO SCH ×2 (05:19→16:49)
[2018-09-28] MEDS: INSULIN GLARGINE,HUM.REC.ANLOG 100 UNIT/ML PEN.INJCTR SQ SCH ×2 (08:06→20:08)
[2018-09-28] MEDS: DOCUSATE SODIUM 100 MG CAPSULE PO SCH ×2 (08:07→20:10)
[2018-09-28] MEDS: ACETAMINOPHEN 500 MG TABLET PO PRN (08:07)
[2018-09-28] MEDS: DULoxetine HCL 30 MG CAPSULE.DR PO SCH (08:08)
[2018-09-28] MEDS: GABAPENTIN 300 MG CAPSULE PO SCH ×3 (08:08→22:14)
[2018-09-28] MEDS: POLYETHYLENE GLYCOL 3350 17 GM POWD.PACK PO SCH (11:38)
[2018-09-28] MEDS: RIVAROXABAN 10 MG TABLET PO SCH (16:49)
[2018-09-28] MEDS: ZOLPIDEM TARTRATE 5 MG TABLET PO PRN (22:14)
[2018-09-29] MEDS: OMEPRAZOLE 20 MG CAPSULE.DR PO SCH ×2 (05:48→16:01)
[2018-09-29] MEDS: oxyCODONE HCL 5 MG TABLET PO PRN (05:49)
[2018-09-29] MEDS: DULoxetine HCL 30 MG CAPSULE.DR PO SCH (08:41)
[2018-09-29] MEDS: DOCUSATE SODIUM 100 MG CAPSULE PO SCH ×2 (08:41→20:01)
[2018-09-29] MEDS: GABAPENTIN 300 MG CAPSULE PO SCH ×3 (08:41→22:30)
[2018-09-29] MEDS: INSULIN GLARGINE,HUM.REC.ANLOG 100 UNIT/ML PEN.INJCTR SQ SCH ×2 (09:21→20:02)
[2018-09-29] MEDS: POLYETHYLENE GLYCOL 3350 17 GM POWD.PACK PO SCH (11:47)
[2018-09-29] MEDS: RIVAROXABAN 10 MG TABLET PO SCH (17:06)
[2018-09-29] MEDS: IBUPROFEN 200 MG TABLET PO PRN (18:46)
[2018-09-29] MEDS: ZOLPIDEM TARTRATE 5 MG TABLET PO PRN (22:31)
[2018-09-30] MEDS: OMEPRAZOLE 20 MG CAPSULE.DR PO SCH ×2 (06:03→17:00)
[2018-09-30] MEDS: GABAPENTIN 300 MG CAPSULE PO SCH ×3 (09:03→22:38)
[2018-09-30] MEDS: DULoxetine HCL 30 MG CAPSULE.DR PO SCH (09:03)
[2018-09-30] MEDS: DOCUSATE SODIUM 100 MG CAPSULE PO SCH ×2 (09:03→20:07)
[2018-09-30] MEDS: INSULIN GLARGINE,HUM.REC.ANLOG 100 UNIT/ML PEN.INJCTR SQ SCH ×2 (09:04→20:14)
[2018-09-30] MEDS: POLYETHYLENE GLYCOL 3350 17 GM POWD.PACK PO SCH (11:30)
[2018-09-30] MEDS: oxyCODONE HCL 5 MG TABLET PO PRN (13:12)
[2018-09-30] MEDS: RIVAROXABAN 10 MG TABLET PO SCH (17:00)
[2018-09-30] MEDS: IBUPROFEN 200 MG TABLET PO PRN (20:07)
[2018-09-30] MEDS: ZOLPIDEM TARTRATE 5 MG TABLET PO PRN (22:38)
[2018-10-01] MEDS: OMEPRAZOLE 20 MG CAPSULE.DR PO SCH ×2 (06:37→15:49)
[2018-10-01] MEDS: DOCUSATE SODIUM 100 MG CAPSULE PO SCH ×2 (08:31→20:41)
[2018-10-01] MEDS: DULoxetine HCL 30 MG CAPSULE.DR PO SCH (08:31)
[2018-10-01] MEDS: INSULIN GLARGINE,HUM.REC.ANLOG 100 UNIT/ML PEN.INJCTR SQ SCH ×2 (08:31→20:43)
[2018-10-01] MEDS: GABAPENTIN 300 MG CAPSULE PO SCH ×3 (08:31→21:58)
[2018-10-01] MEDS: POLYETHYLENE GLYCOL 3350 17 GM POWD.PACK PO SCH (10:38)
[2018-10-01] MEDS: oxyCODONE HCL 5 MG TABLET PO PRN (13:17)
[2018-10-01] MEDS: RIVAROXABAN 10 MG TABLET PO SCH (16:54)
[2018-10-01] MEDS: ZOLPIDEM TARTRATE 5 MG TABLET PO PRN (21:58)
[2018-10-02] MEDS: oxyCODONE HCL 5 MG TABLET PO PRN (05:46)
[2018-10-02] MEDS: OMEPRAZOLE 20 MG CAPSULE.DR PO SCH ×2 (05:46→16:03)
[2018-10-02] MEDS: INSULIN GLARGINE,HUM.REC.ANLOG 100 UNIT/ML PEN.INJCTR SQ SCH ×2 (08:32→20:52)
[2018-10-02] MEDS: GABAPENTIN 300 MG CAPSULE PO SCH ×3 (08:33→21:45)
[2018-10-02] MEDS: DULoxetine HCL 30 MG CAPSULE.DR PO SCH (08:33)
[2018-10-02] MEDS: DOCUSATE SODIUM 100 MG CAPSULE PO SCH ×2 (08:33→20:52)
[2018-10-02] MEDS: POLYETHYLENE GLYCOL 3350 17 GM POWD.PACK PO SCH (11:11)
[2018-10-02] MEDS: RIVAROXABAN 10 MG TABLET PO SCH (17:06)
[2018-10-02] MEDS: IBUPROFEN 200 MG TABLET PO PRN (20:56)
[2018-10-02] MEDS: ZOLPIDEM TARTRATE 5 MG TABLET PO PRN (21:45)
[2018-10-03] MEDS: OMEPRAZOLE 20 MG CAPSULE.DR PO SCH ×2 (06:36→16:51)
[2018-10-03] MEDS: INSULIN GLARGINE,HUM.REC.ANLOG 100 UNIT/ML PEN.INJCTR SQ SCH ×2 (08:53→22:36)
[2018-10-03] MEDS: DOCUSATE SODIUM 100 MG CAPSULE PO SCH ×2 (08:53→22:33)
[2018-10-03] MEDS: GABAPENTIN 300 MG CAPSULE PO SCH ×3 (08:53→22:33)
[2018-10-03] MEDS: DULoxetine HCL 30 MG CAPSULE.DR PO SCH (08:53)
[2018-10-03] MEDS: POLYETHYLENE GLYCOL 3350 17 GM POWD.PACK PO SCH (11:48)
[2018-10-03] MEDS: RIVAROXABAN 10 MG TABLET PO SCH (16:51)
[2018-10-03] MEDS: ZOLPIDEM TARTRATE 5 MG TABLET PO PRN (22:41)
[2018-10-04] MEDS: IBUPROFEN 200 MG TABLET PO PRN ×2 (00:07→17:15)
[2018-10-04] MEDS: OMEPRAZOLE 20 MG CAPSULE.DR PO SCH ×2 (07:09→17:15)
[2018-10-04] MEDS: GABAPENTIN 300 MG CAPSULE PO SCH ×3 (08:32→21:54)
[2018-10-04] MEDS: DOCUSATE SODIUM 100 MG CAPSULE PO SCH ×2 (08:32→19:59)
[2018-10-04] MEDS: INSULIN GLARGINE,HUM.REC.ANLOG 100 UNIT/ML PEN.INJCTR SQ SCH ×2 (08:32→20:53)
[2018-10-04] MEDS: ERGOCALCIFEROL (VITAMIN D2) 50,000 UNIT CAPSULE PO SCH (08:32)
[2018-10-04] MEDS: DULoxetine HCL 30 MG CAPSULE.DR PO SCH (08:32)
[2018-10-04] MEDS: ACETAMINOPHEN 500 MG TABLET PO PRN (09:25)
[2018-10-04] MEDS: POLYETHYLENE GLYCOL 3350 17 GM POWD.PACK PO SCH (11:47)
[2018-10-04] MEDS: RIVAROXABAN 10 MG TABLET PO SCH (17:15)
[2018-10-04] MEDS: ZOLPIDEM TARTRATE 5 MG TABLET PO PRN (21:54)
[2018-10-05] MEDS: IBUPROFEN 200 MG TABLET PO PRN ×2 (02:34→11:28)
[2018-10-05] MEDS: oxyCODONE HCL 5 MG TABLET PO PRN ×2 (04:56→20:00)
[2018-10-05] MEDS: DOCUSATE SODIUM 100 MG CAPSULE PO SCH ×2 (09:46→20:00)
[2018-10-05] MEDS: DULoxetine HCL 30 MG CAPSULE.DR PO SCH (09:46)
[2018-10-05] MEDS: OMEPRAZOLE 20 MG CAPSULE.DR PO SCH ×2 (09:46→16:17)
[2018-10-05] MEDS: INSULIN GLARGINE,HUM.REC.ANLOG 100 UNIT/ML PEN.INJCTR SQ SCH ×2 (09:46→20:01)
[2018-10-05] MEDS: GABAPENTIN 300 MG CAPSULE PO SCH ×3 (09:46→22:00)
[2018-10-05] MEDS: POLYETHYLENE GLYCOL 3350 17 GM POWD.PACK PO SCH (12:07)
[2018-10-05] MEDS: RIVAROXABAN 10 MG TABLET PO SCH (16:17)
[2018-10-05] MEDS: ZOLPIDEM TARTRATE 5 MG TABLET PO PRN (22:00)
[2018-10-06] MEDS: oxyCODONE HCL 5 MG TABLET PO PRN (04:33)
[2018-10-06] MEDS: OMEPRAZOLE 20 MG CAPSULE.DR PO SCH ×2 (06:00→16:11)
[2018-10-06] MEDS: IPRATROPIUM/ALBUTEROL SULFATE 3 ML AMPUL.NEB NEB PRN ×2 (07:50→20:45)
[2018-10-06] MEDS: DULoxetine HCL 30 MG CAPSULE.DR PO SCH (08:24)
[2018-10-06] MEDS: GABAPENTIN 300 MG CAPSULE PO SCH ×3 (08:24→22:07)
[2018-10-06] MEDS: DOCUSATE SODIUM 100 MG CAPSULE PO SCH ×2 (08:24→20:04)
[2018-10-06] MEDS: OSELTAMIVIR PHOSPHATE 75 MG CAPSULE PO SCH ×2 (09:40→20:04)
[2018-10-06] MEDS: INSULIN GLARGINE,HUM.REC.ANLOG 100 UNIT/ML PEN.INJCTR SQ SCH ×2 (09:42→20:08)
[2018-10-06] MEDS: POLYETHYLENE GLYCOL 3350 17 GM POWD.PACK PO SCH (10:14)
[2018-10-06] MEDS: RIVAROXABAN 10 MG TABLET PO SCH (17:39)
[2018-10-06] MEDS: IBUPROFEN 200 MG TABLET PO PRN (18:03)
[2018-10-06] MEDS: ZOLPIDEM TARTRATE 5 MG TABLET PO PRN (22:08)
[2018-10-07] MEDS: OMEPRAZOLE 20 MG CAPSULE.DR PO SCH ×2 (05:56→17:30)
[2018-10-07] MEDS: ACETAMINOPHEN 500 MG TABLET PO PRN (07:24)
[2018-10-07] MEDS: GABAPENTIN 300 MG CAPSULE PO SCH ×3 (09:03→23:03)
[2018-10-07] MEDS: DULoxetine HCL 30 MG CAPSULE.DR PO SCH (09:03)
[2018-10-07] MEDS: DOCUSATE SODIUM 100 MG CAPSULE PO SCH ×2 (09:03→20:19)
[2018-10-07] MEDS: OSELTAMIVIR PHOSPHATE 75 MG CAPSULE PO SCH ×2 (09:03→20:20)
[2018-10-07] MEDS: INSULIN GLARGINE,HUM.REC.ANLOG 100 UNIT/ML PEN.INJCTR SQ SCH ×2 (09:04→20:16)
[2018-10-07] MEDS: POLYETHYLENE GLYCOL 3350 17 GM POWD.PACK PO SCH (11:54)
[2018-10-07] MEDS: RIVAROXABAN 10 MG TABLET PO SCH (17:30)
[2018-10-07] MEDS: IBUPROFEN 200 MG TABLET PO PRN (20:28)
[2018-10-07] MEDS: ZOLPIDEM TARTRATE 5 MG TABLET PO PRN (23:03)
[2018-10-08] MEDS: OMEPRAZOLE 20 MG CAPSULE.DR PO SCH ×2 (06:28→16:03)
[2018-10-08] MEDS: INSULIN GLARGINE,HUM.REC.ANLOG 100 UNIT/ML PEN.INJCTR SQ SCH ×2 (08:26→21:54)
[2018-10-08] MEDS: DOCUSATE SODIUM 100 MG CAPSULE PO SCH ×2 (08:27→21:52)
[2018-10-08] MEDS: GABAPENTIN 300 MG CAPSULE PO SCH ×3 (08:28→23:13)
[2018-10-08] MEDS: DULoxetine HCL 30 MG CAPSULE.DR PO SCH (08:28)
[2018-10-08] MEDS: OSELTAMIVIR PHOSPHATE 75 MG CAPSULE PO SCH ×2 (08:29→21:53)
[2018-10-08] MEDS: IBUPROFEN 200 MG TABLET PO PRN (09:57)
[2018-10-08] MEDS: POLYETHYLENE GLYCOL 3350 17 GM POWD.PACK PO SCH (11:38)
[2018-10-08] MEDS: oxyCODONE HCL 5 MG TABLET PO PRN (12:51)
[2018-10-08] MEDS: RIVAROXABAN 10 MG TABLET PO SCH (16:50)
[2018-10-08] MEDS: ZOLPIDEM TARTRATE 5 MG TABLET PO PRN (23:13)
[2018-10-09] MEDS: OMEPRAZOLE 20 MG CAPSULE.DR PO SCH ×2 (06:44→16:20)
[2018-10-09] MEDS: DULoxetine HCL 30 MG CAPSULE.DR PO SCH (08:28)
[2018-10-09] MEDS: GABAPENTIN 300 MG CAPSULE PO SCH ×3 (08:28→22:16)
[2018-10-09] MEDS: DOCUSATE SODIUM 100 MG CAPSULE PO SCH ×2 (08:28→20:14)
[2018-10-09] MEDS: OSELTAMIVIR PHOSPHATE 75 MG CAPSULE PO SCH ×2 (08:28→20:15)
[2018-10-09] MEDS: INSULIN GLARGINE,HUM.REC.ANLOG 100 UNIT/ML PEN.INJCTR SQ SCH ×2 (09:38→20:15)
[2018-10-09] MEDS: POLYETHYLENE GLYCOL 3350 17 GM POWD.PACK PO SCH (11:09)
[2018-10-09] MEDS: RIVAROXABAN 10 MG TABLET PO SCH (16:40)
[2018-10-09] MEDS: oxyCODONE HCL 5 MG TABLET PO PRN (20:15)
[2018-10-09] MEDS: ZOLPIDEM TARTRATE 5 MG TABLET PO PRN (22:16)
[2018-10-10] MEDS: oxyCODONE HCL 5 MG TABLET PO PRN ×3 (05:53→18:07)
[2018-10-10] MEDS: OMEPRAZOLE 20 MG CAPSULE.DR PO SCH ×2 (05:53→16:54)
--- NOTE | 2018-10-10 08:08 | Discharge Summary ---
Discharge Summary - Discharge Sumary History of Present Illness: Patient is a 68-year-old white female who fell and sustained a right into trochanteric hip fracture. Patient subsequently underwent an open reduction internal fixation of her hip fracture. It was not reported that the patient had any intraoperative or postoperative complications. Patient was transferred to this institution for further rehab services. Goal is for the patient to return back home. Patient does have a history of diabetes mellitus blood sugars have been stable without any hyper hypoglycemic episodePatient did have some problems with urinary retention and a Shultz catheter was placed.s. Patient does have a history of constipation. Had not had a bowel movements several days prior to admission. Condition at Discharge: Stable Home Medications: Ambulatory Orders Medication Instructions Recorded Furosemide [Lasix] 20 mg PO DAILY PRN 04/17/18 Acetaminophen [Extra Strength 1,000 mg PO Q6 PRN 09/06/18 Non-Aspirin] Clonazepam [Klonopin] 0.5 mg PO TID PRN 09/06/18 Duloxetine HCl 60 mg PO DAILY 09/06/18 Ergocalciferol (Vitamin D2) 50,000 unit PO WEEK 09/06/18 [Drisdol] Gabapentin [Neurontin] 600 mg PO TID 09/06/18 Omeprazole 20 mg PO BID 09/06/18 Calcium Carb 500Mg [Tums] 500 mg PO TID tab.chew 10/10/18 Docusate Sodium [Colace] 100 mg PO BID PRN capsule 10/10/18 Consultations this Visit: None Procedures this Visit: None Allergies/Adverse Reactions: Allergies Allergy/AdvReac Type Severity Reaction Status Date / Time levofloxacin [From Levaquin] Allergy Intermediate Rash Verified 09/09/18 08:20 quinine [Quinine] Allergy Intermediate Rash Verified 09/09/18 08:20 Patient Problems: Current Active Problems Problem Status Onset Closed right hip fracture Acute Constipation Acute Influenza A Acute Urinary retention with incomplete bladder emptying Acute Diabetes mellitus type 2 Chronic Discharge Summary: Admission Date: 06 SEP 2018 Level of Care: SNF Discharge Date: 11 OCT 2018 Disposition: Home with home health Patient was started on physical and occupational therapy. Patient did quite well and was highly motivated and participated well with therapy. At the time of dismissal patient was ambulating and transferring much better than at the time of admission. It was felt that she was still going to need some home health services because of increase fall risk. Patient did feel that she was going to be able to manage at home with some help. Patient Shultz catheter was removed and patient did not have any further difficulties with urination. Patient diabetes mellitus remain stable. Patient did have some mild hypoglycemic episodes. Insulin was adjusted. Patient did developed some bodyaches headaches and fever associated with some chills. Patient did test positive for influenza A. Patient was started on Tamiflu and at the time of dismissal was feeling much better. Patient did have some constipation issues associated with her pain medications. However this was well controlled with the estate and MiraLAX. It was felt that the patient could be discharged home safely with home health services. Patient with discharged in stable condition. - Final Diagnosis (1) Closed right hip fracture Problems: Improved will continue with home health therapy at home. Patient will be continued on oxycodone for her chronic pain medication. (2) Influenza A Problems: resolved (3) Constipation Problems: Continue with MiraLAX and ducolax as needed. (4) Diabetes mellitus type 2 Problems: Continue with insulin therapy and monitor blood sugars daily.
[2018-10-10] MEDS: DULoxetine HCL 30 MG CAPSULE.DR PO SCH (08:13)
[2018-10-10] MEDS: DOCUSATE SODIUM 100 MG CAPSULE PO SCH ×2 (08:13→22:17)
[2018-10-10] MEDS: OSELTAMIVIR PHOSPHATE 75 MG CAPSULE PO SCH ×2 (08:13→22:17)
[2018-10-10] MEDS: GABAPENTIN 300 MG CAPSULE PO SCH ×3 (08:13→22:17)
[2018-10-10] MEDS: INSULIN GLARGINE,HUM.REC.ANLOG 100 UNIT/ML PEN.INJCTR SQ SCH ×2 (08:14→22:17)
[2018-10-10 08:41] LABS: MEAN CORPUSCULAR HEMOGLOBIN 28.1 pg (28.0-34.0)
[2018-10-10 08:42] LABS: BASOPHILS % 0.5 (0.0-1.5); MONOCYTES % 6.3 % (0.0-11.0); NEUTROPHILS # 4.5 # k/uL (1.4-7.7)
[2018-10-10 09:00] LABS: eGFR (Non-African) > 60
[2018-10-10] MEDS: CALCIUM CARB 500 MG TAB.CHEW PO SCH ×3 (09:25→17:32)
[2018-10-10] MEDS: POLYETHYLENE GLYCOL 3350 17 GM POWD.PACK PO SCH (11:33)
[2018-10-10] MEDS: RIVAROXABAN 10 MG TABLET PO SCH (16:54)
[2018-10-10] MEDS: ZOLPIDEM TARTRATE 5 MG TABLET PO PRN (22:17)
[2018-10-11] MEDS: oxyCODONE HCL 5 MG TABLET PO PRN (06:00)
[2018-10-11] MEDS: OMEPRAZOLE 20 MG CAPSULE.DR PO SCH (06:40)
--- NOTE | 2018-10-11 08:05 | Inpatient Progress Note ---
Objective - Exam Vitals and I&O: Vital Signs Temp 98.3 F 10/10/18 21:00 Pulse 81 10/10/18 21:00 Resp 18 10/10/18 21:00 BP 137/64 10/10/18 21:00 Pulse Ox 97 10/10/18 21:00 Intake & Output 10/10/18 10/10/18 10/11/18 11:59 23:59 11:59 Intake Total 60 480 250 Balance 60 480 250 Intake: Oral 60 480 250 Other: Voiding Method Bedside Commode Bedside Commode # Voids 1 2 2 # Bowel Movements 0 - Results Results: Laboratory Results WBC 7.50 K/ul (4.00-12.00) 10/10/18 08:38 RBC 4.44 M/ul (3.90-5.20) 10/10/18 08:38 Hgb 12.5 g/dL (12.0-16.0) 10/10/18 08:38 Hct 38.5 % (34.5-46.5) 10/10/18 08:38 MCV 87.0 fl (80.0-100.0) 10/10/18 08:38 MCH 28.1 pg (28.0-34.0) 10/10/18 08:38 MCHC 32.4 g/dL (30.0-36.0) 10/10/18 08:38 RDW 14.1 % (11.3-14.3) 10/10/18 08:38 Plt Count 277 K/mm3 (130-400) 10/10/18 08:38 Neut % (Auto) 60.1 % (39.0-79.0) 10/10/18 08:38 Lymph % (Auto) 29.1 % (16.0-50.0) 10/10/18 08:38 [place] % (Auto) 6.3 % (0.0-11.0) 10/10/18 08:38 Eos % (Auto) 4.0 % (0.0-6.8) 10/10/18 08:38 Baso % (Auto) 0.5 (0.0-1.5) 10/10/18 08:38 Neut # (Auto) 4.5 # k/uL (1.4-7.7) 10/10/18 08:38 Lymph # (Auto) 2.2 # k/uL (0.6-4.0) 10/10/18 08:38 [place] # (Auto) 0.5 # k/uL (0.0-0.9) 10/10/18 08:38 Eos # (Auto) 0.3 # k/uL (0.0-0.6) 10/10/18 08:38 Baso # (Auto) 0.0 # k/uL (0.0-0.5) 10/10/18 08:38 Sodium 143 mmol/L (136-145) 10/10/18 08:38 Potassium 3.5 mmol/L (3.5-5.1) 10/10/18 08:38 Chloride 103 mmol/L (98-107) 10/10/18 08:38 Carbon Dioxide 29 mmol/L (22-30) 10/10/18 08:38 BUN 10 mg/dL (7-17) 10/10/18 08:38 Creatinine 0.75 mg/dL (0.52-1.04) 10/10/18 08:38 Estimated Creat Clear 148 10/10/18 08:38 Est GFR ( Amer) > 60 (60-) 10/10/18 08:38 Est GFR (Non-Af Amer) > 60 (60-) 10/10/18 08:38 Glucose 138 mg/dL (74-106) H 10/10/18 08:38 Calcium 9.2 mg/dL (8.4-10.2) 10/10/18 08:38 Total Bilirubin 0.4 mg/dL (0.2-1.3) 10/10/18 08:38 AST 31 U/L (15-46) 10/10/18 08:38 ALT 24 U/L (13-69) 10/10/18 08:38 Alkaline Phosphatase 129 U/L (38-126) H 10/10/18 08:38 Total Protein 6.7 g/dL (6.3-8.2) 10/10/18 08:38 Albumin 3.8 g/dL (3.5-5.0) 10/10/18 08:38 Influenza Type A Ag Negative (NEGATIVE) 10/06/18 08:00 Influenza Type B Ag Positive (NEGATIVE) H 10/06/18 08:00 Assessment/Plan - Assessment/Plan (1) Closed right hip fracture Status: Acute Current Visit: Yes (2) Influenza A Status: Acute Current Visit: Yes (3) Constipation Status: Acute Current Visit: Yes Qualifiers: Constipation type: slow transit constipation Qualified Code(s): K59.01 - Slow transit constipation (4) Diabetes mellitus type 2 Status: Chronic Current Visit: Yes Assessment: insulin adjusted
[2018-10-11] MEDS: DOCUSATE SODIUM 100 MG CAPSULE PO SCH (09:06)
[2018-10-11] MEDS: CALCIUM CARB 500 MG TAB.CHEW PO SCH (09:06)
[2018-10-11] MEDS: OSELTAMIVIR PHOSPHATE 75 MG CAPSULE PO SCH (09:06)
[2018-10-11] MEDS: DULoxetine HCL 30 MG CAPSULE.DR PO SCH (09:06)
[2018-10-11] MEDS: ERGOCALCIFEROL (VITAMIN D2) 50,000 UNIT CAPSULE PO SCH (09:06)
[2018-10-11] MEDS: GABAPENTIN 300 MG CAPSULE PO SCH (09:06)
[2018-10-11] MEDS: INSULIN GLARGINE,HUM.REC.ANLOG 100 UNIT/ML PEN.INJCTR SQ SCH (09:07)
[2018-10-11 10:27] VITALS: BP 137/64
== END 2018-10-11 10:20 | disposition home health service (06) | DRG 536 ==
LOC: SOUTH 13:50
PROVIDERS: ADMIT Family Medicine; ATTEND Family Medicine
DX: S72.21XA Displaced subtrochanteric fracture of right femur, initial encounter for closed fracture (principal); N39.0 Urinary tract infection, site not specified; E11.9 Type 2 diabetes mellitus without complications; R33.9 Retention of urine, unspecified; R53.1 Weakness; J11.1 Influenza due to unidentified influenza virus with other respiratory manifestations; K21.9 Gastro-esophageal reflux disease without esophagitis; K59.01 Slow transit constipation; W19.XXXD Unspecified fall, subsequent encounter; Y92.009 Unspecified place in unspecified non-institutional (private) residence as the place of occurrence of the external cause; Z79.4 Long term (current) use of insulin
CPT/HCPCS: 73590; 80048; 80053; 85025; 87400; 99222; 99231; 99232; 99238

== ENCOUNTER 2018-12-23 13:20 | Outpatient (CLI) | payer MEDICARE, OTHER ==
[2018-12-19 08:36] VITALS: BP 168/89
== END 2018-12-23 13:22 ==
LOC: RAD 13:20
PROVIDERS: ATTEND Podiatrist Foot & Ankle Surgery
DX: Z53.9 Procedure and treatment not carried out, unspecified reason (principal)

== ENCOUNTER 2018-12-30 14:40 | Outpatient (CLI) | payer MEDICARE, OTHER ==
[2018-12-19 08:36] VITALS: BP 168/89
[2018-12-30] MEDS ORDERED: DENOSUMAB (NF) 60 MG/ML SYRINGE SQ ONE (16:00)
== END 2018-12-30 14:42 ==
LOC: OUT 14:40
PROVIDERS: ATTEND Family Medicine
DX: M81.0 Age-related osteoporosis without current pathological fracture (principal); R00.0 Tachycardia, unspecified
CPT/HCPCS: 96372; J0897

== ENCOUNTER 2019-01-09 09:25 | Outpatient (CLI) | payer MEDICARE, OTHER ==
[2018-12-19 08:36] VITALS: BP 168/89
== END 2019-01-09 09:55 ==
LOC: POD 09:25
PROVIDERS: ATTEND Podiatrist Foot & Ankle Surgery
DX: L89.613 Pressure ulcer of right heel, stage 3 (principal); E11.8 Type 2 diabetes mellitus with unspecified complications; I73.9 Peripheral vascular disease, unspecified
CPT/HCPCS: 11042

== ENCOUNTER 2019-01-30 11:13 | Outpatient (CLI) | payer MEDICARE, OTHER ==
[2018-12-19 08:36] VITALS: BP 168/89
== END 2019-01-30 11:30 ==
LOC: POD 11:13
PROVIDERS: ATTEND Podiatrist Foot & Ankle Surgery
DX: L89.610 Pressure ulcer of right heel, unstageable (principal); L89.620 Pressure ulcer of left heel, unstageable
CPT/HCPCS: 99213

== ENCOUNTER 2019-02-06 11:14 | Outpatient (CLI) | payer MEDICARE, OTHER ==
[2018-12-19 08:36] VITALS: BP 168/89
--- NOTE | 2019-02-14 07:59 | OP Clinic Progress Note ---
DATE OF VISIT: 02/06/2019 SUBJECTIVE: Rebecca Rodriguez is a 68-year-old female presenting to clinic today for follow-up of a right posterolateral heel pressure ulcer as well as previously increased pain with a stage 0 pressure ulcer left heel which has slightly purple discoloration noted. The patient states she is not sure if she is still having pain to the left heel but states she is having significant pain to the right heel still. She is using the offloading padded boot on the right heel when in bed and is keeping her heel off the recliner completely at all times. She is trying her best to keep pressure off of it at all times. The patient is still interested in obtaining an offloading heel padded boot on the left side as well despite knowing it may cost her out of pocket depending upon if insurance covers it. She does not admit to any fevers, chills, nausea, vomiting, shortness of breath or chest pain. OBJECTIVE: Vitals: Temperature 97.7, heart rate 59, respiration rate 14, blood pressure 155/67. O2 saturation is 96% on room air. Vascular: 1+ DP and PT pulses, right foot. Capillary refill time is less than 3 seconds to the toes of the right foot. No edema noted, right foot. Dermatologic: There is a very small slightly yellow eschar that is somewhat stable noted over the posterolateral heel of the right foot. There is no erythema noted around this area or purulence or drainage noted. This was left alone today and we will see if it begins to scab over more with more time and we will see if she begins to heal underneath it. There are no other skin lesions or concerns bilateral feet. There is still purple discoloration noted on the posterolateral left heel. There is no open lesion there, however, or erythema noted. There is no ecchymosis noted. Musculoskeletal: There is gross abnormalities noted, bilateral feet. Neurologic: Light touch sensation is still intact to the heels of both feet. ASSESSMENT AND PLAN: 1. Right heel pressure ulcer, unspecified ulcer stage. 2. Left heel stage 0 preulcer noted. We will continue offloading the bilateral heels as discussed. We will work on obtaining an offloading heel padded boot for the left side as well. A Band-Aid was applied with no antibiotic today. The patient is to continue using a Band- Aid over the top to protect it and we were able to dispense a quarter-inch felt pad with 2 Band-Aids over the back of it to help protect this area appropriately. The patient was sent with some felt padding to continue to do the same to really keep pressure off of this. This is better padding than we have been using before and hopefully this will keep the pressure off even better. The patient will return to the clinic in 2 weeks for follow-up and we will see her at that time to see if this is improving even more. There was no procedure performed on this patient. Arnoldo Thompson.P.M. (Dictated/Not Signed) Cortez Job#: [id number] MTDD
== END 2019-02-06 11:35 ==
LOC: POD 11:14
PROVIDERS: ATTEND Podiatrist Foot & Ankle Surgery
DX: L89.610 Pressure ulcer of right heel, unstageable (principal)
CPT/HCPCS: 99213

== ENCOUNTER 2019-03-06 10:18 | Outpatient (CLI) | payer MEDICARE, OTHER ==
[2018-12-19 08:36] VITALS: BP 168/89
--- NOTE | 2019-03-11 09:52 | OP Clinic Progress Note ---
DATE OF VISIT: 03/06/2019 SUBJECTIVE: Rebecca Rodriguez is a 68-year-old female presenting for followup today of a right heel pressure wound as well as a pre-ulcerative stage 0 pressure area on the left heel. The patient states that she is doing well overall. She does not admit to any fevers, chills, nausea, vomiting, shortness of breath or chest pain. She is using a thick quarter inch felt U Pad and Band- Aid and antibiotic ointment on the site daily. She states that her feels it is looking better. She denies any pain on the left heel at this time. OBJECTIVE: Vitals: Temperature 98.1 degrees Fahrenheit, heart rate 65, respiration rate 20, blood pressure 161/82. O2 saturation is 97% on room air. Vascular: 1+ DP and PT pulses, bilateral feet. Capillary refill time is less than 3 seconds to the toes bilaterally. There is no edema noted, bilateral feet. Dermatologic: On the left heel, posterolaterally there is very small area of a darker somewhat purple discoloration that has been there and consistent and not changing. There is no open wound at the site. The right posterior heel does have a very small open lesion noted that is measuring 0.1 x 0.1 x 0.1 cm deep. It is tried to scab over, but it is not quite there. There is no significant drainage and there is no erythema or purulence or malodor noted. Musculoskeletal: There were no other gross abnormalities noted bilateral feet. Neurologic: Light touch sensation is intact to the heels, bilateral feet. ASSESSMENT AND PLAN: 1. Right heel pressure ulcer, unspecified stage. 2. Left heel stage 0 pressure pre-ulcer. PROCEDURE #1: Sharp debridement of the right posterior heel ulcer with #15 blade was performed down to and including subcutaneous tissue less than 20 square cm with a #15 blade. There is no bleeding noted. The wound site was dressed with Triple Antibiotic ointment, 2 x 2 gauze and surrounded by a quarter inch U-shaped [place] pad and two Band-Aids. The patient is to continue this dressing change daily. The patient has no further questions or concerns and as it is continuing to improve and without any signs of infection, we will continue this plan. I believe these U pads that are a quarter inch [place] are doing better off loading the area and we will encourage her to continue doing this as she is improving. Our goal is to get to a stable eschar and perhaps even a healed site completely. If we get a stable eschar, I will be happy and we will continue protecting it. The patient has no further questions or concerns. Return to clinic in two weeks for followup and hopefully we will find a good stable eschar at that time. Muarice ThompsonP.M.(Dictated/not signed) /Accutype [id number].[id number] /mab MTDD
== END 2019-03-06 11:05 ==
LOC: POD 10:18
PROVIDERS: ATTEND Podiatrist Foot & Ankle Surgery
DX: L89.610 Pressure ulcer of right heel, unstageable (principal); L89.620 Pressure ulcer of left heel, unstageable

== ENCOUNTER 2019-03-20 10:46 | Outpatient (CLI) | payer MEDICARE, OTHER ==
[2018-12-19 08:36] VITALS: BP 168/89
--- NOTE | 2019-03-25 10:55 | OP Clinic Progress Note ---
DATE OF VISIT: 03/20/2019 SUBJECTIVE: Rebecca Rodriguez is a 68-year-old female presenting in clinic today for followup of a right posterolateral heel pressure ulcer. The patient also had a stage 0 left heel preulcerative area that we are usually following up on as well. The patient states that her pain is much improved on that right heel. Overall, she is doing well. She just had cataract surgery and seems to be in pretty good spirits today. The patient's states that he felt going from Medihoney to the Triple Antibiotic Ointment at one point seem to have helped the most and would like to consider any changes to how we do the dressings. She does not admit to any fevers, chills, nausea, vomiting, shortness of breath or chest pain. OBJECTIVE: Vitals: Temperature 97.6 degrees Fahrenheit, heart rate 69, respiration rate 16, blood pressure 144/82. O2 saturation is 99% on room air. Vascular: 1+ DP and PT pulses, right foot. Capillary refill time is less than 3 seconds to the toes of the right foot. There is no edema noted, right foot. Dermatologic: On the posterolateral right heel there is a small open area with minimal slough on the inside. The previous scab seems to have removed. There is no erythema at all noted or drainage or purulence of any kind or malodor noted. There is no probe to bone. The wound base seems fairly dry and does not seem granular. It has the appearance of a small wound with limited blood flow. The wound measures approximately 0.1 x 0.1 x 0.1 cm deep. The left foot was not visualized today. Musculoskeletal: There were no other gross abnormalities noted on the right foot. There is mild pain with debridement today. Neurologic: Light touch sensation is intact to the heel, right foot. ASSESSMENT AND PLAN: 1. Right heel pressure ulcer, unspecified stage. 2. Left heel stage 0 pressure pre-ulcer. PROCEDURE #1: Sharp debridement of the right posterolateral heel ulcer with a #15 blade was performed down to and including subcutaneous tissue less than 20 sq cm today with a #15 blade. There was no bleeding. This site was dressed with Triple Antibiotic Ointment, 2x2 gauze, and a U-pad, quarter inch felt and two Band-Aids. The patient is to do dressing changes daily. She will do a plain Band-Aid every other day and on the other days she will take turns doing either Medihoney or Triple antibiotic ointment. We will see if this changes or helps this with healing. She does not have any other questions or concerns nor does her . Return to clinic in two weeks for followup and we will see if we are getting a more stable scab over this area. If it is not improving in the next two to four weeks, we will consider a referral to a vascular doctor to see if there are any other options even though we were unable to successfully complete an arterial Doppler previously. I believe that blood flow is likely the issue of why this is not improving. She has never had any sort of history of infection of this wound at all and she is doing a pretty good job keeping pressure off of it. I believe blood flow is the reason she is not healing. We will consider this in the next two to four weeks of sending her to a vascular doctor. Arnoldo Thompson.P.M.(Dictated/not signed) /Accutype [id number] /mab MTDD
== END 2019-03-20 11:16 ==
LOC: POD 10:46
PROVIDERS: ATTEND Podiatrist Foot & Ankle Surgery
DX: L89.610 Pressure ulcer of right heel, unstageable (principal); L89.620 Pressure ulcer of left heel, unstageable
CPT/HCPCS: 11042; 99212; G0463; A4554

== ENCOUNTER 2019-04-10 11:10 | Outpatient (CLI) | payer MEDICARE, OTHER ==
[2018-12-19 08:36] VITALS: BP 168/89
--- NOTE | 2019-04-16 12:54 | OP Clinic Progress Note ---
DATE OF VISIT: 04/10/2019 SUBJECTIVE: Rebecca Rodriguez is a 68-year-old female presenting for a two-week followup for a right heel pressure ulcer on the posterolateral aspect of the heel. The patient also has a previous left heel stage 0 pressure pre-ulcer and I believe peripheral arterial disease noted. The patient is here for followup and states that she is having very little pain at all and is doing very well at this time. The patient and her have been taking care of it well with dressing changes as discussed previously with alternating triple antibiotic ointment and Medihoney and then a day of nothing except for a Band-Aid. The patient is doing very well. She is only showering, and not bathing at this time. She does not admit to any fever, chills, nausea, vomiting, shortness of breath or chest pain. OBJECTIVE: Vitals: Temperature 99.4, heart rate 120, respiration rate 18, blood pressure 143/82. O2 sat 96% on room air. Vascular: 1+ DP and PT pulses, right foot. Capillary refill time less than 3 seconds to the toes right foot. No edema noted in the right foot. Dermatologic: Posterolateral right heel has a very small fairly stable eschar that is about moderately stable. There is no erythema or warmth noted on the edges of it. There is some slight pink discoloration in the skin that is possibly evidence of decreased blood flow in the area. The scab appears to be more stable than the previous scab that she had previously before it came off. The patient had this left alone as there is no drainage at this time. There is no warmth or signs of infection. This today was not measured as it is a small eschar. This is better than last time when there was an open wound measuring 0.1 x 0.1 x 0.1 cm deep. Musculoskeletal: There is no other gross abnormalities noted, right foot. Neurologic: Light touch sensation is intact to the heel, right foot. It should be noted that I did not visualize the left heel today. ASSESSMENT AND PLAN: 1. Right heel pressure ulcer, unspecified stage. 2. Left heel stage 0 pressure pre-ulcer. 3. Peripheral arterial disease. There were no procedures performed today. The patient is healing and improving slightly. I believe that it is appropriate to continue the present management with dressings consisting of daily Band-Aid with alternating triple antibiotic ointment versus Medihoney, versus nothing except a Band-Aid as we were doing previously. They are to increase some air time as well to let this begin to dry out more. The patient had no further questions. If this eschar seems to open up again, we will likely work on sending her to a vascular specialist with the knowledge that she was unable to have arterial Dopplers, ultrasound performed completely previously and we may need help seeing if we can increase blood flow anyway. She may need to go directly to a more invasive test for blood flow testing. The patient has no further questions and we will see her for a return to clinic visit in three weeks. Davis Antonio D.P.M.(Dictated/not signed) /Accutype [id number] /mab MTDD
== END 2019-04-10 11:35 ==
LOC: POD 11:10
PROVIDERS: ATTEND Podiatrist Foot & Ankle Surgery
DX: L89.619 Pressure ulcer of right heel, unspecified stage (principal); L89.629 Pressure ulcer of left heel, unspecified stage; I73.9 Peripheral vascular disease, unspecified
CPT/HCPCS: 11042; 99213; G0463; 99212; A4554

== ENCOUNTER 2019-05-01 08:21 | Outpatient (CLI) | payer MEDICARE, OTHER ==
[2018-12-19 08:36] VITALS: BP 168/89
--- NOTE | 2019-05-05 13:35 | OP Clinic Progress Note ---
DATE OF VISIT: 05/01/2019 SUBJECTIVE: Rebecca Rodriguez is a 68-year-old female with peripheral vascular disease, presenting today for followup of a right heel pressure ulcer on the posterolateral aspect of the heel. The patient recently a few days ago has stopped using any kind of padding on it or bandages stating that it is a tiny scab and is not hurting at all any more. She is excited about her progress. She is doing everything she can to keep pressure off of it in every situation she is in. She does not admit to any fevers, chills, nausea, vomiting, shortness of breath or chest pain. OBJECTIVE: Vitals: Temperature 97.2 degrees Fahrenheit, heart rate 119, respiration rate 16, blood pressure 155/98. O2 saturation is 96% on room air. Vascular: 1+ DP and PT pulses bilaterally, checked today. Capillary refill time is also less than 3 seconds to the toes bilaterally. There is no edema noted in bilateral feet. Dermatologic: Toenails are long, thick and discolored bilaterally toes one through five. The posterolateral right heel has a very small eschar/hyperkeratotic lesion that is about the same level as the rest of the normal skin. It appears much more stable than it ever has been. It is a completely stable eschar that is about 0.1 x 0.1 cm in size. There is no erythema at all or purple discoloration or any abnormality around it. There is no drainage or purulence or malodor noted. We did not visualize the posterolateral left heel but the patient is also not complaining of any pain there and it seems to be doing much better. Musculoskeletal: There were no other gross abnormalities noted right or left feet. 5/5 muscle strength about the ankle and subtalar joint bilaterally today. There is no pain on palpation noted about that right posterolateral heel scab area. Neurologic: Light touch sensation is intact to the toes bilaterally. ASSESSMENT AND PLAN: 1. Right heel pressure ulcer, unspecified stage. 2. Peripheral arterial disease. 3. Left heel stage 0 pressure pre-ulcer. PROCEDURE #1: Trimming of toenails one through five bilateral feet was performed without incident today. The patient tolerated this well. There were no other procedures performed. The family decided that they wanted to try and forego using any kind of padding as it seems to be feeling great. They were encouraged to monitor it carefully then and if there is any pain that ensues or any sort of redness or irritation then they need to get the pad going right away. Otherwise we will plan on seeing them in one month to push her out a little bit longer but not too long as she is trying to do something new with foregoing the pad starting a few days ago. Return to clinic in four weeks. If she is looking great at that time and once the skin is totally healed we will push her out to her normal every three-month appointment to take care of her toenails and check her feet again. If she still has the small scab we will push her out likely six weeks to keep a good eye on it still. Maurice ThompsonP.M.(Dictated/not signed) /Accutype [id number] /mab MTDD
== END 2019-05-01 08:50 ==
LOC: POD 08:21
PROVIDERS: ATTEND Podiatrist Foot & Ankle Surgery
DX: L89.619 Pressure ulcer of right heel, unspecified stage (principal); I73.9 Peripheral vascular disease, unspecified
CPT/HCPCS: 11719; 99212; G0463

== ENCOUNTER 2019-05-29 08:25 | Outpatient (CLI) | payer MEDICARE, OTHER ==
[2018-12-19 08:36] VITALS: BP 168/89
--- NOTE | 2019-06-06 12:31 | OP Clinic Progress Note ---
DATE OF VISIT: 05/29/2019 SUBJECTIVE: Rebecca presented to the clinic today for followup of a right posterior lateral heel pressure ulcer that recently has been scabbing over well. She was seen last about four weeks ago and has been keeping a Band-Aid over it until just recently. She does not admit to any concerns or issues and states that it is not causing any pain for her anymore. She does not admit to any fevers, chills, nausea, vomiting, shortness of breath or chest pain. OBJECTIVE: Vitals: Temperature 97.1 degrees Fahrenheit, heart rate 60, respiration rate 16, blood pressure 148/63. O2 saturation is 99% on room air. Vascular: 1+ DP and PT pulses, right foot. Capillary refill time is less than 3 seconds to the toes of the right foot. There is no edema noted, right foot. Dermatologic: There is an incredibly stable, small eschar noted on the posterolateral right heel that is without any erythema or signs of discoloration of the skin around it. The scab itself appears to be fairly dry and just about to fall off on its own. There is no pain in this area. There are no other skin abnormalities or concerns noted. The toenails are beginning to get a bit long and discolored and thick. There is mild red discoloration to the dorsal PIPJs of the toes two through four due to hammertoe contractures. Musculoskeletal: There was no pain on palpation at the right posterolateral heel where the small eschar is located. There are no other gross abnormalities noted except for some digital contractures noted right second through fourth toes and hallux valgus of the right foot. There are no other gross abnormalities noted. Neurologic: Light touch sensation is intact to the toes, right foot. ASSESSMENT AND PLAN: 1. Right posterolateral heel pressure ulcer - healed. There were no procedures performed. There are no concerning areas at this time. The patient's right foot looks great and she is not having any pain there. Return to clinic in one month for her regular three-month follow up for toenail trimming and checking her feet. We will see her in the [facility] and see her every 3 months going from there again. She knows that it is important to keep that heel off any pressure points at all. Maurice ThompsonP.M. (Dictated/not signed) /Accutype [id number].[id number] /mab MTDD
== END 2019-05-29 08:55 ==
LOC: POD 08:25
PROVIDERS: ATTEND Podiatrist Foot & Ankle Surgery
DX: Z09 Encounter for follow-up examination after completed treatment for conditions other than malignant neoplasm (principal)
CPT/HCPCS: 99212; G0463